=== PATIENT | male | born 1945 | race Caucasian/White ===

== ENCOUNTER → 2021-02-14 | Outpatient (CLI) | payer BC ==
[2021-02-14 13:22] LABS: BASO # 0.1 x10^3/uL (0.0-0.2); BASO % 1 % (0-3); EOS # 0.9 x10^3/uL (0.0-0.7); EOS % 8 % (0-3); HEMATOCRIT 36.5 % (39.0-53.0); HEMOGLOBIN 11.9 g/dL (13.0-17.5); LYMPH # 1.9 x10^3/uL (1.0-4.8); LYMPH % 18 % (24-48); MEAN CORPUSCULAR HEMOGLOBIN 27 pg (25-35); MEAN CORPUSCULAR HGB CONC 33 g/dL (31-37); MEAN CORPUSCULAR VOLUME 81 fL (79-100); MONO # 0.5 x10^3/uL (0.0-1.1); MONO % 4 % (0-9); NEUT # 7.2 x10^3/uL (1.8-7.7); NEUT % 68 % (31-73); PLATELET COUNT 415 x10^3/uL (140-400); RED CELL DISTRIBUTION WIDTH 18.3 % (11.5-14.5); WHITE BLOOD COUNT 10.6 x10^3/uL (4.0-11.0)
[2021-02-14 13:44] LABS: CALCIUM 9.1 mg/dL (8.5-10.1); CREATININE 1.7 mg/dL (0.7-1.3); GFR 39.3; POTASSIUM 4.4 mmol/L (3.5-5.1)
[2021-02-14 13:50] LABS: ALBUMIN 2.7 g/dL (3.4-5.0); ALBUMIN/GLOBULIN RATIO 0.6 (1.0-1.7); TOTAL BILIRUBIN 0.5 mg/dL (0.2-1.0); TOTAL PROTEIN 7.1 g/dL (6.4-8.2)
[2021-02-14 17:43] LABS: BILIRUBIN,URINE NEGATIVE (NEG); CLARITY,URINE CLEAR; COLOR,URINE YELLOW; NITRITE,URINE NEGATIVE (NEG); PH,URINE 5.5 (<5.0-8.0); PROTEIN,URINE NEGATIVE (NEG-TRACE)
[2021-02-14 17:52] LABS: BACTERIA,URINE 0 /HPF (0-FEW); RBC,URINE 0 /HPF (0-2); WBC,URINE 0 /HPF (0-4)
== END ==
LOC: ONCLAB 12:58
PROVIDERS: ATTEND Physician Assistant
DX: C78.7 Secondary malignant neoplasm of liver and intrahepatic bile duct (principal); C18.7 Malignant neoplasm of sigmoid colon
CPT/HCPCS: 36415; 80053; 81001; 83615; 85025

== ENCOUNTER → 2021-03-14 | Outpatient (CLI) | payer BC ==
[~2021-03-14] MED LIST: ACET325T9 PO; B VITAMIN; BUPR150T8 PO; CALC300T5 PO; CETI10TA74 PO; CRESTOR5 MG PO; FAMO40TA57 PO; MAG-115 PO; MECO10005 PO; MIRT7.5T8 PO; NYST100054 PO; RIVA1PAT23 TP; magic mouthwash; mvi
[2021-03-14 11:32] LABS: BASO % 0 % (0-3); EOS % 2 % (0-3); HEMOGLOBIN 12.8 g/dL (13.0-17.5); LYMPH # 1.1 x10^3/uL (1.0-4.8); LYMPH % 33 % (24-48); MEAN CORPUSCULAR HEMOGLOBIN 27 pg (25-35); MEAN CORPUSCULAR HGB CONC 33 g/dL (31-37); MEAN CORPUSCULAR VOLUME 83 fL (79-100); MONO # 0.1 x10^3/uL (0.0-1.1); MONO % 4 % (0-9); NEUT % 62 % (31-73); PLATELET COUNT 294 x10^3/uL (140-400); RED BLOOD COUNT 4.68 x10^6/uL (4.30-5.70); RED CELL DISTRIBUTION WIDTH 20.6 % (11.5-14.5); WHITE BLOOD COUNT 3.3 x10^3/uL (4.0-11.0)
[2021-03-14 11:38] LABS: CALCIUM 8.7 mg/dL (8.5-10.1); CREATININE 3.4 mg/dL (0.7-1.3); GFR 17.7; POTASSIUM 3.2 mmol/L (3.5-5.1)
[2021-03-14 11:44] LABS: ALBUMIN 2.1 g/dL (3.4-5.0); ALBUMIN/GLOBULIN RATIO 0.6 (1.0-1.7); TOTAL BILIRUBIN 0.8 mg/dL (0.2-1.0); TOTAL PROTEIN 5.9 g/dL (6.4-8.2)
[2021-03-14 12:28] LABS: % BANDS 27 % (0-9); % EOS 1 % (0-5); % LYMPHS 35 % (24-48); % MONOS 11 % (0-10); % SEGS 26 % (35-66); ANISOCYTOSIS PRESENT; PLT ESTIMATE ADEQUATE (ADEQUATE)
== END ==
LOC: ONCLAB 11:07
PROVIDERS: ATTEND Physician Assistant
DX: C18.7 Malignant neoplasm of sigmoid colon (principal)
CPT/HCPCS: 36415; 80053; 84550; 85007; 85025

== ENCOUNTER 2021-03-15 10:22 | Inpatient (IN) | payer BC ==
[~2021-03-15] VITALS: Ht 172.7 cm; Wt 52.6 kg
--- NOTE | 2021-03-15 10:52 | PHYS DOC ---
Past Medical History Past Medical History Metastatic colon cancer, Alzheimer's, chemotherapy status Past Surgical History Port placement Smoking Status: Unknown if ever smoked Alcohol Use: None Drug Use: None General Adult EDM: Chief Complaint: SHORTNESS OF BREATH Problems: (1) Shortness of breath HPI: HPI: 75-year-old male with a history of metastatic colon cancer, Alzheimer's presents to the emergency department with shortness of breath for the past several days. He was seen by his oncologist yesterday and was found to have an acute kidney injury, was given fluids yesterday felt more short of breath. The patient was seen by his oncologist before coming to the emergency department where there was concern for possible pulmonary embolism given his risk factors and presentation today. His last round of chemotherapy was approximately 10 days ago and he has had a total of 3 rounds of chemotherapy. He is complained of diarrhea since his chemotherapy. He has baseline Alzheimer's dementia and thus is unable to recall many details of his history. He was in contact with somebody with [employer] recently. Review of Systems: Review of Systems: Further review of systems is difficult secondary to patient's Alzheimer's dementia. Heart Score: C/O Chest Pain: No Family History: Family History: Noncontributory Current Medications: Current Medications Sodium Chloride 1,000 ml @ 1,000 mls/hr 1X ONCE IV Last administered on 03/15/21at 11:57; Start 03/15/21 at 11:00; Stop 03/15/21 at 11:59; Status DC Piperacillin Sod/ Tazobactam Sod (Zosyn Per Pharmacy) 1 each PRN DAILY PRN MC SEE COMMENTS; Start 03/15/21 at 11:15; Status UNV Vancomycin HCl (Vanco Per Pharmacy) 1 each PRN DAILY PRN MC SEE COMMENTS; Start 03/15/21 at 11:15; Status UNV Piperacillin Sod/ Tazobactam Sod 3.375 gm/Sodium Chloride 50 ml @ 100 mls/hr 1X ONCE IV Last administered on 03/15/21at 11:58; Start 03/15/21 at 11:30; Stop 03/15/21 at 11:59; Status DC Allergies: Allergies: Allergies Coded Allergies Type Severity Reaction Last Updated Verified No Known Drug Allergies 03/15/21 No Physical Exam: PE: Constitutional: Well developed, well nourished, no acute distress, non-toxic appearance. [] HENT: Normocephalic, atraumatic, bilateral external ears normal, oropharynx moist, no oral exudates, nose normal. [] Eyes: PERRLA, EOMI, conjunctiva normal, no discharge. [] Neck: Normal range of motion, no tenderness, supple, no stridor. [] Cardiovascular:Heart rate regular rhythm, no murmur [] Lungs & Thorax: Bilateral breath sounds clear to auscultation [] Abdomen: Bowel sounds normal, soft, no tenderness, no masses, no pulsatile masses. [] Skin: Warm, dry, no erythema, no rash. [] Back: No tenderness, no CVA tenderness. [] Extremities: No tenderness, no cyanosis, no clubbing, ROM intact, no edema. [] Neurologic: Alert and oriented X 3, normal motor function, normal sensory function, no focal deficits noted. [] Psychologic: Affect normal, judgement normal, mood normal. [] Current Patient Data: Labs: Laboratory Tests Test 03/15/21 11:25 03/15/21 11:26 03/15/21 11:50 White Blood Count 3.6 x10^3/uL (4.0-11.0) Red Blood Count 5.12 x10^6/uL (4.30-5.70) Hemoglobin 14.2 g/dL (13.0-17.5) Hematocrit 42.8 % (39.0-53.0) Mean Corpuscular Volume 84 fL (79-100) Mean Corpuscular Hemoglobin 28 pg (25-35) Mean Corpuscular Hemoglobin Concent 33 g/dL (31-37) Red Cell Distribution Width 19.8 % (11.5-14.5) Platelet Count 329 x10^3/uL (140-400) Neutrophils (%) (Auto) 73 % (31-73) Lymphocytes (%) (Auto) 23 % (24-48) Monocytes (%) (Auto) 3 % (0-9) Eosinophils (%) (Auto) 1 % (0-3) Basophils (%) (Auto) 0 % (0-3) Neutrophils # (Auto) 2.6 x10^3/uL (1.8-7.7) Lymphocytes # (Auto) 0.8 x10^3/uL (1.0-4.8) Monocytes # (Auto) 0.1 x10^3/uL (0.0-1.1) Eosinophils # (Auto) 0.0 x10^3/uL (0.0-0.7) Basophils # (Auto) 0.0 x10^3/uL (0.0-0.2) D-Dimer (Arleen) 2.23 ug/mlFEU (0.00-0.50) Sodium Level 143 mmol/L (136-145) Potassium Level 4.0 mmol/L (3.5-5.1) Chloride Level 106 mmol/L (98-107) Carbon Dioxide Level 14 mmol/L (21-32) Anion Gap 23 (6-14) Blood Urea Nitrogen 93 mg/dL (8-26) Creatinine 3.7 mg/dL (0.7-1.3) Estimated GFR (Cockcroft-Gault) 16.0 Glucose Level 107 mg/dL (70-99) Lactic Acid Level 5.6 mmol/L (0.4-2.0) Calcium Level 8.8 mg/dL (8.5-10.1) Total Bilirubin 0.6 mg/dL (0.2-1.0) Direct Bilirubin 0.3 mg/dL (0.0-0.2) Aspartate Amino Transf (AST/SGOT) 33 U/L (15-37) Alanine Aminotransferase (ALT/SGPT) 17 U/L (16-63) Alkaline Phosphatase 183 U/L (46-116) Total Protein 5.8 g/dL (6.4-8.2) Albumin 2.3 g/dL (3.4-5.0) SARS-CoV-2 Antigen (Rapid) Negative (NEGATIVE) MX-Ovi-M-Type Natriuretic Peptide 9637 pg/mL (0-449) Vital Signs: Vital Signs Date Time Temp Pulse Resp B/P (MAP) Pulse Ox O2 Delivery O2 Flow Rate FiO2 03/15/21 10:22 97.4 86 26 88/62 99 Room Air 97.4 EKG: EKG: Normal sinus rhythm rate of 87, no ST-T wave changes, no ectopic beats, normal axis, normal KS, QRS, and QTc intervals. Impression: Normal EKG. interpreted by me, Bria Velez D.O. Radiology/Procedures: Radiology/Procedures: PROCEDURE: CHEST AP ONLY Single AP view of the chest. Comparison: None. Indication: Shortness of breath Findings: Left subclavian Port-A-Cath is seen with the tip in the mid SVC. The aorta is calcified. The heart is not enlarged. There is no pneumothorax or effusion. No air space or interstitial disease. Impression: 1. No acute cardiopulmonary process. Electronically signed by: Reinaldo Briones MD (03/15/2021 11:11 AM) PROCEDURE: VENOUS LOWER EXT BILATERAL US BILATERAL LOWEREXTREMITY VENOUS DOPPLER History: Reason: Leg color changes / Spl. Instructions: / History: Swelling Comparison: None. Technique: Multiple longitudinal and transverse high resolution real-time images of the venous system of bilateral lower extremity were obtained with color and Doppler sampling. Findings: The common femoral, superficial femoral, popliteal and proximal calf veins are all patent and demonstrate normal flow and compressibility. Normal respiratory phasicity and augmentation is present. Impression: 1. No evidence of deep vein thrombosis. Electronically signed by: Jean-Paul Juarez DO (03/15/2021 12:48 PM) [] Course & Med Decision Making: Course & Med Decision Making Cachectic appearing, chronically ill male presents with shortness of breath as above. Per family, the patient is a DNR per his advanced directives. The patient's labs are suggestive of an acute kidney injury. His D-dimer is elevated and there is moderate suspicion for pulmonary embolism per the oncologist who checked out to me. A CT angiogram was unable to be performed by the radiology department today due to his lab findings, thus a D-dimer which was positive and DVT ultrasounds were performed which were negative. The patient will be admitted to the hospital under Dr. Gill. His vital signs were improved after fluids. Dehydration is likely the cause of his acute kidney injury and lactic acidosis today secondary to his diarrhea from chemo. Antibiotics were ordered to cover for sepsis due to his hypotension and ill ap pearance Departure Departure Impression: Primary Impression: Lactic acidosis Additional Impressions: Acute renal injury due to hypovolemia Cachexia Disposition: ADMITTED INPATIENT Admitting Physician: JAYCEE (Jairo) Condition: IMPROVED Referrals: UNKNOWN PCP NAME (PCP) BRIA VELEZ DO Mar 15, 2021 10:52
[2021-03-15] MEDS ORDERED: IV NORMAL SALINE 1000ML BAG 1,000 ML IV ONE ×3 (11:00→17:00)
--- NOTE | 2021-03-15 11:14 | RAD ---
Single AP view of the chest. Comparison: None. Indication: Shortness of breath Findings: Left subclavian Port-A-Cath is seen with the tip in the mid SVC. The aorta is calcified. The heart is not enlarged. There is no pneumothorax or effusion. No air space or interstitial disease. Impression: 1. No acute cardiopulmonary process. Electronically signed by: Reinaldo Briones MD (03/15/2021 11:11 AM) [id number]
[2021-03-15] MEDS ORDERED: PIP/TAZO PER PHARMACY MC PRN (11:15)
[2021-03-15] MEDS ORDERED: VANCOMYCIN PER PHARMACY MC PRN (11:15)
[2021-03-15] MEDS ORDERED: PIPERACILLIN/TAZOBACTAM 3.375 GM in IV NORMAL SALINE 50ML 50 ML IV ONE (11:30)
[2021-03-15 11:54] LABS: BASO % 0 % (0-3); EOS % 1 % (0-3); HEMATOCRIT 42.8 % (39.0-53.0); HEMOGLOBIN 14.2 g/dL (13.0-17.5); LYMPH # 0.8 x10^3/uL (1.0-4.8); LYMPH % 23 % (24-48); MEAN CORPUSCULAR HEMOGLOBIN 28 pg (25-35); MEAN CORPUSCULAR HGB CONC 33 g/dL (31-37); MEAN CORPUSCULAR VOLUME 84 fL (79-100); MONO # 0.1 x10^3/uL (0.0-1.1); MONO % 3 % (0-9); NEUT # 2.6 x10^3/uL (1.8-7.7); NEUT % 73 % (31-73); PLATELET COUNT 329 x10^3/uL (140-400); RED BLOOD COUNT 5.12 x10^6/uL (4.30-5.70); RED CELL DISTRIBUTION WIDTH 19.8 % (11.5-14.5); WHITE BLOOD COUNT 3.6 x10^3/uL (4.0-11.0)
[2021-03-15 12:29] LABS: CALCIUM 8.8 mg/dL (8.5-10.1); CREATININE 3.7 mg/dL (0.7-1.3)
[2021-03-15 12:40] LABS: ALBUMIN 2.3 g/dL (3.4-5.0); DIRECT BILIRUBIN 0.3 mg/dL (0.0-0.2); TOTAL BILIRUBIN 0.6 mg/dL (0.2-1.0); TOTAL PROTEIN 5.8 g/dL (6.4-8.2)
--- NOTE | 2021-03-15 12:51 | RAD ---
US BILATERAL LOWEREXTREMITY VENOUS DOPPLER History: Reason: Leg color changes / Spl. Instructions: / History: Swelling Comparison: None. Technique: Multiple longitudinal and transverse high resolution real-time images of the venous system of bilateral lower extremity were obtained with color and Doppler sampling. Findings: The common femoral, superficial femoral, popliteal and proximal calf veins are all patent and demonst rate normal flow and compressibility. Normal respiratory phasicity and augmentation is present. Impression: 1. No evidence of deep vein thrombosis. Electronically signed by: Jean-Paul Juarez DO (03/15/2021 12:48 PM) [id number]
--- NOTE | 2021-03-15 13:07 | PDOC1 ---
History and Physical Date of Admission Date of Admission DATE: 03/15/21 TIME: 13:07 Identification/Chief Complaint Chief Complaint fatigue, weight loss, dehydration History of Present Illness History of Present Illness 75-year-old male with a history of metastatic colon cancer, Alzheimer's presented to the emergency department with shortness of breath for the past several days.seen by his oncologist yesterday and was found to have an acute kidney injury, last round of chemotherapy was approximately 10 days ago and he has had a total of 3 rounds of chemotherapy. has complained of diarrhea since his chemotherapy. hx compromised due to baseline Alzheimer's dementia hx Stage 4 metastatic colon cancer Left subclavian Port-A-Cath Acute renal injury due to hypovolemia / Cachexia / Severe protein-caloric malnutrition cr 3.7 PLAN DVT prophylaxis /Consult oncology //iv fluid support //emperic iv zosyn, zyvox // ID CONSULT consult nephrology Past Medical History Past Medical History Past Medical History Past Medical History Metastatic colon cancer, Alzheimer's, chemotherapy status Past Surgical History Port placement Smoking Status: Unknown if ever smoked Alcohol Use: None Drug Use: None fhx dementia CENTRAL NERVOUS SYSTEM: Dementia Musculoskeletal: Weakness Family History Family History: Hypertension Social History Smoke: No ALCOHOL: none Drugs: None Current Medications Current Medications Current Medications Sodium Chloride 1,000 ml @ 1,000 mls/hr 1X ONCE IV Last administered on 03/15/21at 11:57; Start 03/15/21 at 11:00; Stop 03/15/21 at 11:59; Status DC Piperacillin Sod/ Tazobactam Sod (Zosyn Per Pharmacy) 1 each PRN DAILY PRN MC SEE COMMENTS; Start 03/15/21 at 11:15; Status UNV Vancomycin HCl (Vanco Per Pharmacy) 1 each PRN DAILY PRN MC SEE COMMENTS; Start 03/15/21 at 11:15; Status UNV Piperacillin Sod/ Tazobactam Sod 3.375 gm/Sodium Chloride 50 ml @ 100 mls/hr 1X ONCE IV Last administered on 03/15/21at 11:58; Start 03/15/21 at 11:30; Stop 03/15/21 at 11:59; Status DC Allergies Allergies: Coded Allergies: No Known Drug Allergies (Unverified , 03/15/21) ROS General: YES: Fatigue, Malaise, Appetite PSYCHOLOGICAL ROS: YES: Concentration difficultie; No: Anxiety, Behavioral Disorder, Decreased libido, Depression, Disorientation, Hallucinations, Hostility, Irritablity, Memory difficulties, Mood Swings, Obsessive thoughts, Physical abuse, Sexual abuse, Sleep disturbances, Suicidal ideation, Other Eyes: Yes Decreased vision; No Blurry vision, No Double vision, No Dry eyes, No Excessive tearing, No Eye Pain, No Itchy Eyes, No Loss of vision, No Photophobia, No Scotomata, No Uses contacts, No Uses glasses, No Other HEENT: No: Heacaches, Visual Changes, Hearing change, Nasal congestion, Nasal discharge, Oral lesions, Sinus pain, Sore Throat, Epistaxis, Sneezing, Snoring, Tinnitus, Vertigo, Vocal changes, Other ALLERGY AND IMMUNOLOGY: No: Hives, Insect Bite Sensitivity, Itchy/Watery Eyes, Nasal Congestion, Post Nasal Drip, Seasonal Allergies, Other Hematological and Lymphatic: No: Bleeding Problems, Blood Clots, Blood T ransfusions, Brusing, Night Sweats, Pallor, Swollen Lymph Nodes, Other ENDOCRINE: No: Breast Changes, Galactorrhea, Hair Pattern Changes, Hot Flashes, Malaise/lethargy, Mood Swings, Palpitations, Polydipsia/polyuria, Skin Changes, Temperature Intolerance, Unexpected Weight Changes, Other Breast: No New/Changing Breast Lumps, No Nipple changes, No Nipple discharge, No Other Respiratory: YES: Shortness of breath, SOB with excertion; No: Cough, Hemoptysis, Orthopnea, Pleuritic Pain, Sputum Changes, Stridor, Tachypnea, Wheezing, Other Cardiovascular: No Chest Pain, No Palpitations, No Orthopnea, No Paroxysmal Noc. Dyspnea, No Edema, No Lt Headedness, No Other Gastrointestinal: Yes Diarrhea; No Nausea, No Vomiting, No Abdominal Pain, No Constipation, No Melena, No Hematochezia, No Other Genitourinary: No Dysuria, No Frequency, No Incontinence, No Hematuria, No Retention, No Discharge, No Urgency, No Pain, No Flank Pain, No Other, No , No , No , No , No , No , No Musculoskeletal: Yes Joint Stiffness Neurological: Yes Confusion; No Behavorial Changes, No Bowel/Bladder ControlChng, No Dizziness, No Gait Disturbance, No Headaches, No Impaired Coord/balance, No Memory Loss, No Numbness/Tingling, No Seizures, No Speech Problems, No Tremors, No Visual Changes, No Weakness, No Other Skin: Yes Dry Skin; No Eczema, No Hair Changes, No Lumps, No Mole Changes, No Mottling, No Nail Changes, No Pruritus, No Rash, No Skin Lesion Changes, No Other, No Acne Physical Exam Physical Exam Constitutional: cachexia no acute distress, non-toxic appearance. [] HENT: Normocephalic, atraumatic, bilateral external ears normal, oropharynx moist, no oral exudates, nose normal. [] Eyes: PERRLA, EOMI, conjunctiva normal, no discharge. [] Neck: Normal range of motion, no tenderness, supple, no stridor. [] Cardiovascular:Heart rate regular rhythm, no murmur [] Lungs & Thorax: Bilateral breath sounds clear to auscultation [] Abdomen: Bowel sounds normal, soft, no tenderness, no masses, no pulsatile masses. [] Skin: Warm, dry, no erythema, no rash. [] Back: No tenderness, no CVA tenderness. [] Extremities: No tenderness, no cyanosis, no clubbing, ROM intact, no edema. [] Left subclavian Port-A-Cath General: Cooperative HEENT: EOMI Lungs: Normal air movement Heart: no thrills Abdomen: Normal bowel sounds Rectal Exam: not examined PELVIC: Examination not indicated Extremities: No clubbing, No cyanosis Neuro: Cranial nerves 3-12 NL Vitals Vitals Vital Signs Date Time Temp Pulse Resp B/P (MAP) Pulse Ox O2 Delivery O2 Flow Rate FiO2 03/15/21 10:22 97.4 86 26 88/62 99 Room Air 97.4 Labs Labs Laboratory Tests Test 03/15/21 11:25 03/15/21 11:26 03/15/21 11:50 White Blood Count 3.6 x10^3/uL (4.0-11.0) Red Blood Count 5.12 x10^6/uL (4.30-5.70) Hemoglobin 14.2 g/dL (13.0-17.5) Hematocrit 42.8 % (39.0-53.0) Mean Corpuscular Volume 84 fL (79-100) Mean Corpuscular Hemoglobin 28 pg (25-35) Mean Corpuscular Hemoglobin Concent 33 g/dL (31-37) Red Cell Distribution Width 19.8 % (11.5-14.5) Platelet Count 329 x10^3/uL (140-400) Neutrophils (%) (Auto) 73 % (31-73) Lymphocytes (%) (Auto) 23 % (24-48) Monocytes (%) (Auto) 3 % (0-9) Eosinophils (%) (Auto) 1 % (0-3) Basophils (%) (Auto) 0 % (0-3) Neutrophils # (Auto) 2.6 x10^3/uL (1.8-7.7) Lymphocytes # (Auto) 0.8 x10^3/uL (1.0-4.8) Monocytes # (Auto) 0.1 x10^3/uL (0.0-1.1) Eosinophils # (Auto) 0.0 x10^3/uL (0.0-0.7) Basophils # (Auto) 0.0 x10^3/uL (0.0-0.2) D-Dimer (Arleen) 2.23 ug/mlFEU (0.00-0.50) Sodium Level 143 mmol/L (136-145) Potassium Level 4.0 mmol/L (3.5-5.1) Chloride Level 106 mmol/L (98-107) Carbon Dioxide Level 14 mmol/L (21-32) Anion Gap 23 (6-14) Blood Urea Nitrogen 93 mg/dL (8-26) Creatinine 3.7 mg/dL (0.7-1.3) Estimated GFR (Cockcroft-Gault) 16.0 Glucose Level 107 mg/dL (70-99) Calcium Level 8.8 mg/dL (8.5-10.1) Total Bilirubin 0.6 mg/dL (0.2-1.0) Direct Bilirubin 0.3 mg/dL (0.0-0.2) Aspartate Amino Transf (AST/SGOT) 33 U/L (15-37) Alanine Aminotransferase (ALT/SGPT) 17 U/L (16-63) Alkaline Phosphatase 183 U/L (46-116) Total Protein 5.8 g/dL (6.4-8.2) Albumin 2.3 g/dL (3.4-5.0) SARS-CoV-2 Antigen (Rapid) Negative (NEGATIVE) AB-Aoi-Z-Type Natriuretic Peptide 9637 pg/mL (0-449) Laboratory Tests Test 03/15/21 11:25 03/15/21 11:26 03/15/21 11:50 White Blood Count 3.6 x10^3/uL (4.0-11.0) Red Blood Count 5.12 x10^6/uL (4.30-5.70) Hemoglobin 14.2 g/dL (13.0-17.5) Hematocrit 42.8 % (39.0-53.0) Mean Corpuscular Volume 84 fL (79-100) Mean Corpuscular Hemoglobin 28 pg (25-35) Mean Corpuscular Hemoglobin Concent 33 g/dL (31-37) Red Cell Distribution Width 19.8 % (11.5-14.5) Platelet Count 329 x10^3/uL (140-400) Neutrophils (%) (Auto) 73 % (31-73) Lymphocytes (%) (Auto) 23 % (24-48) Monocytes (%) (Auto) 3 % (0-9) Eosinophils (%) (Auto) 1 % (0-3) Basophils (%) (Auto) 0 % (0-3) Neutrophils # (Auto) 2.6 x10^3/uL (1.8-7.7) Lymphocytes # (Auto) 0.8 x10^3/uL (1.0-4.8) Monocytes # (Auto) 0.1 x10^3/uL (0.0-1.1) Eosinophils # (Auto) 0.0 x10^3/uL (0.0-0.7) Basophils # (Auto) 0.0 x10^3/uL (0.0-0.2) D-Dimer (Arleen) 2.23 ug/mlFEU (0.00-0.50) Sodium Level 143 mmol/L (136-145) Potassium Level 4.0 mmol/L (3.5-5.1) Chloride Level 106 mmol/L (98-107) Carbon Dioxide Level 14 mmol/L (21-32) Anion Gap 23 (6-14) Blood Urea Nitrogen 93 mg/dL (8-26) Creatinine 3.7 mg/dL (0.7-1.3) Estimated GFR (Cockcroft-Gault) 16.0 Glucose Level 107 mg/dL (70-99) Calcium Level 8.8 mg/dL (8.5-10.1) Total Bilirubin 0.6 mg/dL (0.2-1.0) Direct Bilirubin 0.3 mg/dL (0.0-0.2) Aspartate Amino Transf (AST/SGOT) 33 U/L (15-37) Alanine Aminotransferase (ALT/SGPT) 17 U/L (16-63) Alkaline Phosphatase 183 U/L (46-116) Total Protein 5.8 g/dL (6.4-8.2) Albumin 2.3 g/dL (3.4-5.0) SARS-CoV-2 Antigen (Rapid) Negative (NEGATIVE) RN-Euo-Z-Type Natriuretic Peptide 9637 pg/mL (0-449) Images Images think and talk about your own wishes for healthcare in case youre ever not able to tell your loved ones or healthcare team what your wishes are. If you became really sick tomorrow, would your loved ones or healthcare team know what your wishes were? Here are some examples of different sets of goals and health care directives for your conversations: My wish is to use all medical therapies including resuscitation (such as CPR) and artificial life-sustaining treatments (such as machines and medicine) in an intensive care unit, to keep me alive if at all possible. My wish is to live as long as possible, but I dont want attempts to bring me back to life if my heart and breathing stop. I would like full medical care but without using resuscitation or artificial life- sustaining intensive treatments, if these are unlikely to make me live longer or restore me to a certain quality of life. I will accept treatments that try to fix medical problems, but if Im not getting better or going to have a certain quality of life, I would want to switch to focusing only on my comfort and letting my happen naturally. My wish is for healthcare to focus on my comfort and lessen suffering. I would like medical care that focuses only on my quality of life and that allows me to naturally. Consider: What does a good quality of life mean for me? For many people, it is the ability to live independently and tell their own story. I may define it differently. Under what circumstances would I not want to be kept alive by medical treatments, resuscitation, or intensive care? What kind of changes to my health or life might make me change my mind? If I clearly am facing the last chapter of my life, how do I want the story to end? Who do I want to speak for me if I cant speak for myself? Do they understand my preferences? Are they willing to assume the role of my Durable Power of Milling Machine Operator Gear? Can I change my Goals of Care Designation? Yes, your Goals of Care Designation can be changed at any time. It should be reviewed if: your health condition changes your circumstances change (such as new understanding) you are transferred or admitted to another healthcare setting dpoa review, to pt portal 17 min and question review PATIENT: KAILYN DOUGLAS ACCOUNT: [id number] : 1945 LOCATION: ER AGE: 75 SEX: M EXAM STATUS: REG ER ORD. PHYSICIAN: BRIA ELLIOTT DO REASON: shortness of breath PROCEDURE: CHEST AP ONLY Single AP view of the chest. Comparison: None. Indication: Shortness of breath Findings: Left subclavian Port-A-Cath is seen with the tip in the mid SVC. The aorta is calcified. The heart is not enlarged. There is no pneumothorax or effusion. No air space or interstitial disease. Impression: 1. No acute cardiopulmonary process. Electronically signed by: Reinaldo Briones MD (03/15/2021 11:11 AM) [id number] DICTATED and SIGNED BY: REINALDO BRIONES MD DATE: 03/15/21 [id number] 0Signed PATIENT: KAILYN DOUGLAS ACCOUNT: [id number] : 1945 LOCATION: ER AGE: 75 SEX: M EXAM STATUS: REG ER ORD. PHYSICIAN: BRIA ELLIOTT DO REASON: Leg color changes PROCEDURE: VENOUS LOWER EXT BILATERAL US BILATERAL LOWEREXTREMITY VENOUS DOPPLER History: Reason: Leg color changes / Spl. Instructions: / History: Swelling Comparison: None. Technique: Multiple longitudinal and transverse high resolution real-time images of the venous system of bilateral lower extremity were obtained with color and Doppler sampling. Findings: The common femoral, superficial femoral, popliteal and proximal calf veins are all patent and demonstrate normal flow and compressibility. Normal respiratory phasicity and augmentation is present. Impression: 1. No evidence of deep vein thrombosis. Electronically signed by: Jean-Paul Juarez DO (03/15/2021 12:48 PM) [id number] DICTATED and SIGNED BY: JEAN-PAUL JUAREZ DO DATE: 03/15/21 [id number] PATIENT: KAILYN DOUGLAS ACCOUNT: [id number] : 1945 LOCATION: ER AGE: 75 SEX: M EXAM STATUS: REG ER ORD. PHYSICIAN: BRIA ELLIOTT DO REASON: shortness of breath PROCEDURE: CHEST AP ONLY Single AP view of the chest. Comparison: None. Indication: Shortness of breath Findings: Left subclavian Port-A-Cath is seen with the tip in the mid SVC. The aorta is calcified. The heart is not enlarged. There is no pneumothorax or effusion. No air space or interstitial disease. Impression: 1. No acute cardiopulmonary process. Electronically signed by: Reinaldo Briones MD (03/15/2021 11:11 AM) [id number] DICTATED and SIGNED BY: REINALDO BRIONES MD DATE: 03/15/21 [id number] VTE Prophylaxis Ordered VTE Prophylaxis Devices: No VTE Pharmacological Prophylaxi: Yes Assessment/Plan Assessment/Plan Impression: Lactic acidosis Stage 4 metastatic colon cancer Left subclavian Port-A-Cath Acute renal injury due to hypovolemia Cachexia Severe protein-caloric malnutrition SEPSIS ADMITTED iv fluid support DNR CONSULT NEPHROLOGY DVT prophylaxis Consult oncology iv fluid support emperic iv zosyn, zyvox ID CONSULT Justifications for Admission Other Justification MARCIA RUFFIN MD Mar 15, 2021 13:07
[2021-03-15] MEDS ORDERED: ONDANSETRON PF 4 MG/2 ML VIAL. IVP PRN (13:15)
[2021-03-15] MEDS ORDERED: ACETAMINOPHEN 325 MG TABLET. PO PRN ×2 (13:15→16:30)
[2021-03-15 13:20] LABS: % BANDS 55 % (0-9); % EOS 1 % (0-5); % LYMPHS 23 % (24-48); % METAS 10 % (0-0); % MONOS 5 % (0-10); % MYELOS 1 % (0-0); % SEGS 5 % (35-66); ANISOCYTOSIS MOD; NUCLEATED RBC 14; PLT ESTIMATE ADEQUATE (ADEQUATE)
[2021-03-15 13:21] LABS: POLYCHROMASIA OCCASIONAL
[2021-03-15] MEDS ORDERED: VANCOMYCIN 1.25 GM in IV NORMAL SALINE 250ML 250 ML IV ONE (14:00)
[2021-03-15] MEDS: IV NORMAL SALINE 1000ML BAG 1,000 ML IV SCH ×2 (15:30→23:23)
[2021-03-15] MEDS ORDERED: guaiFENesin ORAL 200 MG/10 ML LIQUID. PO PRN (16:30)
[2021-03-15] MEDS ORDERED: 0.9 % SODIUM CHLORIDE 10 ML DISP.SYRIN. IV PRN (16:30)
[2021-03-15] MEDS ORDERED: ONDANSETRON PF 4 MG/2 ML VIAL. IV PRN (16:30)
[2021-03-15] MEDS ORDERED: DOCUSATE SODIUM 100 MG CAPSULE. PO PRN (16:30)
[2021-03-15] MEDS ORDERED: ALBUTEROL SULFATE 2.5 MG/3 ML NEBU. NEB PRN (16:30)
[2021-03-15] MEDS ORDERED: ACETAMINOPHEN 650 MG SUPP.RECT. PR PRN (16:30)
[2021-03-15] MEDS: PIPERACILLIN/TAZOBACTAM 2.25 GM in IV NORMAL SALINE 50ML 50 ML IV SCH (17:38)
[2021-03-15 23:15] VITALS: BP 130/58
[2021-03-16] MEDS: PIPERACILLIN/TAZOBACTAM 2.25 GM in IV NORMAL SALINE 50ML 50 ML IV SCH ×5 (02:37→23:40)
[2021-03-16 03:00] VITALS: BP 122/56
[2021-03-16] MEDS: IV NORMAL SALINE 1000ML BAG 1,000 ML IV SCH (06:00)
[2021-03-16 06:16] LABS: BASO % 0 % (0-3); EOS # 0.1 x10^3/uL (0.0-0.7); EOS % 1 % (0-3); LYMPH # 0.7 x10^3/uL (1.0-4.8); LYMPH % 14 % (24-48); MEAN CORPUSCULAR HEMOGLOBIN 28 pg (25-35); MEAN CORPUSCULAR HGB CONC 32 g/dL (31-37); MEAN CORPUSCULAR VOLUME 86 fL (79-100); MONO # 0.2 x10^3/uL (0.0-1.1); MONO % 3 % (0-9); NEUT # 3.8 x10^3/uL (1.8-7.7); NEUT % 81 % (31-73); PLATELET COUNT 227 x10^3/uL (140-400); RED BLOOD COUNT 3.96 x10^6/uL (4.30-5.70); RED CELL DISTRIBUTION WIDTH 22.4 % (11.5-14.5); WHITE BLOOD COUNT 4.7 x10^3/uL (4.0-11.0)
[2021-03-16 06:37] LABS: CALCIUM 7.8 mg/dL (8.5-10.1); CREATININE 2.9 mg/dL (0.7-1.3); GFR 21.2
[2021-03-16] MEDS ORDERED: NYST100054 PO (06:37)
[2021-03-16] MEDS ORDERED: CRESTOR5 MG PO (06:37)
[2021-03-16] MEDS ORDERED: mvi (06:37)
[2021-03-16] MEDS ORDERED: MIRT7.5T8 PO (06:37)
[2021-03-16] MEDS ORDERED: BUPR150T8 PO (06:37)
[2021-03-16] MEDS ORDERED: MECO10005 PO (06:37)
[2021-03-16] MEDS ORDERED: CETI10TA74 PO (06:37)
[2021-03-16] MEDS ORDERED: FAMO40TA57 PO (06:37)
[2021-03-16] MEDS ORDERED: MAG-115 PO (06:37)
[2021-03-16] MEDS ORDERED: CALC300T5 PO (06:37)
[2021-03-16] MEDS ORDERED: RIVA1PAT23 TP (06:37)
[2021-03-16] MEDS ORDERED: magic mouthwash (06:37)
[2021-03-16] MEDS ORDERED: B VITAMIN (06:37)
[2021-03-16] MEDS ORDERED: ACET325T9 PO (06:37)
[2021-03-16 07:00] VITALS: BP 119/55
[2021-03-16 07:21] LABS: POTASSIUM 2.9 mmol/L (3.5-5.1)
--- NOTE | 2021-03-16 07:48 | PDOC ---
[employer] PROGRESS NOTE Date of Service DOS: DATE: 03/16/21 TIME: 07:47 Chief Complaint Chief Complaint A/P: Lactic acidosis Stage 4 metastatic colon cancer Left subclavian Port-A-Cath Acute renal injury due to hypovolemia Cachexia Severe protein-caloric malnutrition SEPSIS History of Present Illness History of Present Illness 75-year-old male with a history of metastatic colon cancer, Alzheimer's presented to the emergency department with shortness of breath for the past several days.seen by his oncologist yesterday and was found to have an acute kidney injury, last round of chemotherapy was approximately 10 days ago and he has had a total of 3 rounds of chemotherapy. has complained of diarrhea since his chemotherapy. hx compromised due to baseline Alzheimer's dementia hx Stage 4 metastatic colon cancer Left subclavian Port-A-Cath Acute renal injury due to hypovolemia / Cachexia / Severe protein-caloric malnutrition cr 3.7 K2.9 today. Just feeling tired this is only complaint. Afebrile. Vitals/I&O Vitals/I&O: Vital Signs Date Time Temp Pulse Resp B/P (MAP) Pulse Ox O2 Delivery O2 Flow Rate FiO2 03/16/21 03:00 96.5 81 20 122/56 (78) 97 Room Air 96.5 I & O 03/15/21 03/15/21 03/16/21 15:00 23:00 07:00 Intake Total 0 ml Balance 0 ml Physical Exam General: Cooperative Abdomen: Normal bowel sounds Extremities: No clubbing, No cyanosis Labs Labs: Laboratory Tests Test 03/15/21 11:25 03/15/21 11:26 03/15/21 11:50 03/15/21 15:20 White Blood Count 3.6 x10^3/uL (4.0-11.0) Red Blood Count 5.12 x10^6/uL (4.30-5.70) Hemoglobin 14.2 g/dL (13.0-17.5) Hematocrit 42.8 % (39.0-53.0) Mean Corpuscular Volume 84 fL (79-100) Mean Corpuscular Hemoglobin 28 pg (25-35) Mean Corpuscular Hemoglobin Concent 33 g/dL (31-37) Red Cell Distribution Width 19.8 % (11.5-14.5) Platelet Count 329 x10^3/uL (140-400) Neutrophils (%) (Auto) 73 % (31-73) Lymphocytes (%) (Auto) 23 % (24-48) Monocytes (%) (Auto) 3 % (0-9) Eosinophils (%) (Auto) 1 % (0-3) Basophils (%) (Auto) 0 % (0-3) Neutrophils # (Auto) 2.6 x10^3/uL (1.8-7.7) Lymphocytes # (Auto) 0.8 x10^3/uL (1.0-4.8) Monocytes # (Auto) 0.1 x10^3/uL (0.0-1.1) Eosinophils # (Auto) 0.0 x10^3/uL (0.0-0.7) Basophils # (Auto) 0.0 x10^3/uL (0.0-0.2) Segmented Neutrophils % 5 % (35-66) Band Neutrophils % 55 % (0-9) Lymphocytes % 23 % (24-48) Monocytes % 5 % (0-10) Eosinophils % 1 % (0-5) Metamyelocytes % 10 % (0-0) Myelocytes % 1 % (0-0) Nucleated Red Blood Cells 14 Dohle Bodies Present Platelet Estimate Adequate (ADEQUATE) Platelet Clumps, EDTA Polychromasia Occasional Anisocytosis Mod D-Dimer (Arleen) 2.23 ug/mlFEU (0.00-0.50) Sodium Level 143 mmol/L (136-145) Potassium Level 4.0 mmol/L (3.5-5.1) Chloride Level 106 mmol/L (98-107) Carbon Dioxide Level 14 mmol/L (21-32) Anion Gap 23 (6-14) Blood Urea Nitrogen 93 mg/dL (8-26) Creatinine 3.7 mg/dL (0.7-1.3) Estimated GFR (Cockcroft-Gault) 16.0 Glucose Level 107 mg/dL (70-99) Lactic Acid Level 5.6 mmol/L (0.4-2.0) 6.3 mmol/L (0.4-2.0) Calcium Level 8.8 mg/dL (8.5-10.1) Total Bilirubin 0.6 mg/dL (0.2-1.0) Direct Bilirubin 0.3 mg/dL (0.0-0.2) Aspartate Amino Transf (AST/SGOT) 33 U/L (15-37) Alanine Aminotransferase (ALT/SGPT) 17 U/L (16-63) Alkaline Phosphatase 183 U/L (46-116) Total Protein 5.8 g/dL (6.4-8.2) Albumin 2.3 g/dL (3.4-5.0) SARS-CoV-2 Antigen (Rapid) Negative (NEGATIVE) XO-Ezg-V-Type Natriuretic Peptide 9637 pg/mL (0-449) Test 03/16/21 04:58 White Blood Count 4.7 x10^3/uL (4.0-11.0) Red Blood Count 3.96 x10^6/uL (4.30-5.70) Hemoglobin 11.0 g/dL (13.0-17.5) Hematocrit 34.0 % (39.0-53.0) Mean Corpuscular Volume 86 fL (79-100) Mean Corpuscular Hemoglobin 28 pg (25-35) Mean Corpuscular Hemoglobin Concent 32 g/dL (31-37) Red Cell Distribution Width 22.4 % (11.5-14.5) Platelet Count 227 x10^3/uL (140-400) Neutrophils (%) (Auto) 81 % (31-73) Lymphocytes (%) (Auto) 14 % (24-48) Monocytes (%) (Auto) 3 % (0-9) Eosinophils (%) (Auto) 1 % (0-3) Basophils (%) (Auto) 0 % (0-3) Neutrophils # (Auto) 3.8 x10^3/uL (1.8-7.7) Lymphocytes # (Auto) 0.7 x10^3/uL (1.0-4.8) Monocytes # (Auto) 0.2 x10^3/uL (0.0-1.1) Eosinophils # (Auto) 0.1 x10^3/uL (0.0-0.7) Basophils # (Auto) 0.0 x10^3/uL (0.0-0.2) Sodium Level 146 mmol/L (136-145) Potassium Level 2.9 mmol/L (3.5-5.1) Chloride Level 115 mmol/L (98-107) Carbon Dioxide Level 13 mmol/L (21-32) Anion Gap 18 (6-14) Blood Urea Nitrogen 84 mg/dL (8-26) Creatinine 2.9 mg/dL (0.7-1.3) Estimated GFR (Cockcroft-Gault) 21.2 Glucose Level 62 mg/dL (70-99) Calcium Level 7.8 mg/dL (8.5-10.1) Assessment and Plan Assessmemt and Plan Problems Medical Problems: (1) Acute renal injury due to hypovolemia Status: Acute (2) Cachexia Status: Acute (3) Lactic acidosis Status: Acute Comment Review of Relevant I have reviewed the following items day (where applicable) has been applied. Medications: Current Medications Medications (Trade) Dose Ordered Sig/Cornelio Route PRN Reason Start Time Stop Time Status Last Admin Dose Admin Sodium Chloride 1,000 ml @ 1,000 mls/hr 1X ONCE IV 03/15/21 11:00 03/15/21 11:59 DC 03/15/21 11:57 Piperacillin Sod/ Tazobactam Sod 3.375 gm/Sodium Chloride 50 ml @ 100 mls/hr 1X ONCE IV 03/15/21 11:30 03/15/21 11:59 DC 03/15/21 11:58 Sodium Chloride 1,000 ml @ 125 mls/hr Q8H IV 03/15/21 14:00 03/16/21 13:59 03/15/21 23:23 Vancomycin HCl 1.25 gm/Sodium Chloride 250 ml @ 166.667 mls/hr 1X ONCE IV 03/15/21 14:00 03/15/21 15:29 DC 03/15/21 14:04 Sodium Chloride 1,000 ml @ 1,000 mls/hr 1X ONCE IV 03/15/21 13:30 03/15/21 14:29 DC 03/15/21 14:05 Piperacillin Sod/ Tazobactam Sod 2.25 gm/Sodium Chloride 50 ml @ 100 mls/hr Q6HRS IV 03/15/21 18:00 03/16/21 06:00 Linezolid/Dextrose 300 ml @ 300 mls/hr Q12HR IV 03/15/21 21:00 03/16/21 00:37 Sodium Chloride 1,000 ml @ 1,000 mls/hr 1X ONCE IV 03/15/21 17:00 03/15/21 17:59 DC 03/15/21 17:00 Justifications for Admission General Conditions Elevated Lactate?: Yes Justification for admission: Patient has tachycardia (> 100 beats per minute) or hypotension (SBP < 90 mm Hg) leading to inadequate systemic perfusion as indicated by lactate of greater or equal to 2.5 mmol/L. Other Justification ANNE MARIE BAH MD Mar 16, 2021 07:48
[2021-03-16] MEDS ORDERED: POTASSIUM BICARB 20 MEQ EFFERVESCENT TABLET. PO ONE (08:30)
--- NOTE | 2021-03-16 10:51 | PDOC2 ---
CONSULT Date of Consult Date of Consult DATE: 03/16/21 TIME: 10:42 Reason for Consult Reason for Consult: GLENDA Referring Physician Referring Physician: AUGUSTIN Identification/Chief Complaint Chief Complaint CONFUSION, GLENDA Source Source: Chart review History of Present Illness Reason for Visit: THIS IS A 75 YR OLD WITH STAGE 4 MET COLON CA. APPARENTLY HAD SOME SOB LAST FEW DAYS. HAS BEEN GETTING CHEMOTHERAPY LAST OF WHICH WAS 10 DAYS AGO. HE HAS HAD 3 ROUNDS. HE CANNOT GIVE ANY HX HE IS CONFUSED AND HAS ALZHEIMERS. HE HAS HAD POOR PO INTAKE AND DIARRHEA. LABS INDICATED GLENDA WITH HYPOKALEMIA, HYPERNATREMIA AND AN AG MET ACIDOSIS WITH HYPERCHLOREMIA. NO KNOW CKD AND NO KNOWN OTHER H X. UNCERTAIN WHICH CHEMO DRUGS HAVE BEEN UTILIZED. ALSO HYPOTENSIVE ON ADMIT. MILD LEUCOPENIA ALSO NOTED Past Medical History Cardiovascular: HTN CENTRAL NERVOUS SYSTEM: Dementia Heme/Onc: Cancer, Other Psych: Depression Musculoskeletal: Weakness Past Surgical History Past Surgical History PORT A CATH Family History Family History: Hypertension Social History No ALCOHOL: none Drugs: None Lives: with Family Current Problem List Problem List Problems Medical Problems: (1) Acute renal injury due to hypovolemia Status: Acute (2) Cachexia Status: Acute (3) Lactic acidosis Status: Acute Current Medications Current Medications Current Medications Sodium Chloride 1,000 ml @ 1,000 mls/hr 1X ONCE IV Last administered on 03/15/21at 11:57; Start 03/15/21 at 11:00; Stop 03/15/21 at 11:59; Status DC Piperacillin Sod/ Tazobactam Sod (Zosyn Per Pharmacy) 1 each PRN DAILY PRN MC SEE COMMENTS; Start 03/15/21 at 11:15 Vancomycin HCl (Vanco Per Pharmacy) 1 each PRN DAILY PRN MC SEE COMMENTS; Start 03/15/21 at 11:15; Stop 03/15/21 at 15:46; Status DC Piperacillin Sod/ Tazobactam Sod 3.375 gm/Sodium Chloride 50 ml @ 100 mls/hr 1X ONCE IV Last administered on 03/15/21at 11:58; Start 03/15/21 at 11:30; Stop 03/15/21 at 11:59; Status DC Ondansetron HCl (Zofran) 4 mg PRN Q8HRS PRN IVP NAUSEA/VOMITING; Start 03/15/21 at 13:15; Stop 03/16/21 at 13:14 Sodium Chloride 1,000 ml @ 125 mls/hr Q8H IV Last administered on 03/16/21at 06:00; Start 03/15/21 at 14:00; Stop 03/16/21 at 13:59 Acetaminophen (Tylenol) 650 mg PRN Q4HRS PRN PO FEVER > 100.3'F; Start 03/15/21 at 13:15; Stop 03/16/21 at 13:14 Vancomycin HCl 1.25 gm/Sodium Chloride 250 ml @ 166.667 mls/hr 1X ONCE IV Last administered on 03/15/21at 14:04; Start 03/15/21 at 14:00; Stop 03/15/21 at 15:29; Status DC Sodium Chloride 1,000 ml @ 1,000 mls/hr 1X ONCE IV Last administered on 03/15/21at 14:05; Start 03/15/21 at 13:30; Stop 03/15/21 at 14:29; Status DC Piperacillin Sod/ Tazobactam Sod 2.25 gm/Sodium Chloride 50 ml @ 100 mls/hr Q6HRS IV Last administered on 03/16/21at 06:00; Start 03/15/21 at 18:00 Linezolid/Dextrose 300 ml @ 300 mls/hr Q12HR IV Last administered on 03/16/21at 00:37; Start 03/15/21 at 21:00 Sodium Chloride (Normal Saline Flush) 3 ml QSHIFT PRN IV AFTER MEDS AND BLOOD DRAWS; Start 03/15/21 at 16:30 Ondansetron HCl (Zofran) 4 mg PRN Q4HRS PRN IV NAUSEA/VOMITING; Start 03/15/21 at 16:30 Acetaminophen (Tylenol) 650 mg PRN Q4HRS PRN PO TEMP OVER 100.4F OR MILD PAIN; Start 03/15/21 at 16:30 Acetaminophen (Tylenol Supp) 650 mg PRN Q4HRS PRN SC TEMP OVER 100.4F OR MILD PAIN; Start 03/15/21 at 16:30 Docusate Sodium (Colace) 100 mg PRN BID PRN PO HARD STOOLS; Start 03/15/21 at 16:30 Albuterol Sulfate (Ventolin Neb Soln) 2.5 mg PRN Q4HRS PRN NEB SHORTNESS OF BREATH; Start 03/15/21 at 16:30 Guaifenesin (Robitussin) 200 mg PRN Q4HRS PRN PO COUGH; Start 03/15/21 at 16:30 Sodium Chloride 1,000 ml @ 1,000 mls/hr 1X ONCE IV Last administered on 03/15/21at 17:00; Start 03/15/21 at 17:00; Stop 03/15/21 at 17:59; Status DC Potassium Bicarbonate (Potassium Effervescent Tablet) 40 meq 1X ONCE PO ; Start 03/16/21 at 08:30; Stop 03/16/21 at 08:31; Status DC Active Scripts Active Reported Mylanta Maximum Strength Liq (Mag Hydrox/Aluminum Hyd/Simeth) 355 Ml Oral.susp 355 Ml PO DAILY PRN Tylenol (Acetaminophen) 325 Mg Tablet 1-2 Tab PO QID PRN [magic mouthwash] Nystatin 100,000 Unit/1 Ml Oral.susp 5 Ml PO QID Tums (Calcium Carbonate) 300 Mg Tab.chew 300 Mg PO 2-3XD EXELON 9.5mg/24hr (Rivastigmine) 1 Each Patch.td24 1 Patch TP DAILY Mirtazapine 7.5 Mg Tablet 1 Tab PO QHS 30 Days Crestor (Rosuvastatin Calcium) 5 Mg Tablet 10 Mg PO HS Zyrtec (Cetirizine Hcl) 10 Mg Tablet 10 Mg PO HS Pepcid (Famotidine) 40 Mg Tablet 40 Mg PO BID [b1 vitamin] 1 B12 Active (Mecobalamin) 1,000 Mcg Tab.chew 1,000 Mcg PO DAILY [mvi] Wellbutrin Sr (Bupropion Hcl) 150 Mg Tablet.er 150 Mg PO DAILY Allergies Allergies: Coded Allergies: No Known Drug Allergies (Unverified , 03/15/21) ROS Review of System UNABLE TO OBTAIN Physical Exam General: Cooperative, No acute distress HEENT: Atraumatic, PERRLA, EOMI, Other (DRY MUCOSA) Lungs: Clear to auscultation, Normal air movement Heart: Regular rate, Other (? S4 AND MR) Abdomen: Normal bowel sounds, Soft, No tenderness Extremities: No cyanosis Skin: No breakdown Neuro: Other (CONFUSED) Psych/Mental Status: Other (CONFUSED AFFECT) MUSCULOSKELETAL: No joint tenderness, No deformity, No swelling, Other (CACHECTIC) Vitals VITALS Vital Signs Date Time Temp Pulse Resp B/P (MAP) Pulse Ox O2 Delivery O2 Flow Rate FiO2 03/16/21 07:00 97.5 86 20 119/55 (76) 100 Room Air 97.5 Labs Labs Laboratory Tests Test 03/15/21 11:25 03/15/21 11:26 03/15/21 11:50 03/15/21 15:20 White Blood Count 3.6 x10^3/uL (4.0-11.0) Red Blood Count 5.12 x10^6/uL (4.30-5.70) Hemoglobin 14.2 g/dL (13.0-17.5) Hematocrit 42.8 % (39.0-53.0) Mean Corpuscular Volume 84 fL (79-100) Mean Corpuscular Hemoglobin 28 pg (25-35) Mean Corpuscular Hemoglobin Concent 33 g/dL (31-37) Red Cell Distribution Width 19.8 % (11.5-14.5) Platelet Count 329 x10^3/uL (140-400) Neutrophils (%) (Auto) 73 % (31-73) Lymphocytes (%) (Auto) 23 % (24-48) Monocytes (%) (Auto) 3 % (0-9) Eosinophils (%) (Auto) 1 % (0-3) Basophils (%) (Auto) 0 % (0-3) Neutrophils # (Auto) 2.6 x10^3/uL (1.8-7.7) Lymphocytes # (Auto) 0.8 x10^3/uL (1.0-4.8) Monocytes # (Auto) 0.1 x10^3/uL (0.0-1.1) Eosinophils # (Auto) 0.0 x10^3/uL (0.0-0.7) Basophils # (Auto) 0.0 x10^3/uL (0.0-0.2) Segmented Neutrophils % 5 % (35-66) Band Neutrophils % 55 % (0-9) Lymphocytes % 23 % (24-48) Monocytes % 5 % (0-10) Eosinophils % 1 % (0-5) Metamyelocytes % 10 % (0-0) Myelocytes % 1 % (0-0) Nucleated Red Blood Cells 14 Dohle Bodies Present Platelet Estimate Adequate (ADEQUATE) Platelet Clumps, EDTA Polychromasia Occasional Anisocytosis Mod D-Dimer (Arleen) 2.23 ug/mlFEU (0.00-0.50) Sodium Level 143 mmol/L (136-145) Potassium Level 4.0 mmol/L (3.5-5.1) Chloride Level 106 mmol/L (98-107) Carbon Dioxide Level 14 mmol/L (21-32) Anion Gap 23 (6-14) Blood Urea Nitrogen 93 mg/dL (8-26) Creatinine 3.7 mg/dL (0.7-1.3) Estimated GFR (Cockcroft-Gault) 16.0 Glucose Level 107 mg/dL (70-99) Lactic Acid Level 5.6 mmol/L (0.4-2.0) 6.3 mmol/L (0.4-2.0) Calcium Level 8.8 mg/dL (8.5-10.1) Total Bilirubin 0.6 mg/dL (0.2-1.0) Direct Bilirubin 0.3 mg/dL (0.0-0.2) Aspartate Amino Transf (AST/SGOT) 33 U/L (15-37) Alanine Aminotransferase (ALT/SGPT) 17 U/L (16-63) Alkaline Phosphatase 183 U/L (46-116) Total Protein 5.8 g/dL (6.4-8.2) Albumin 2.3 g/dL (3.4-5.0) SARS-CoV-2 RNA (MARLEN) Negative (Negative) SARS-CoV-2 Antigen (Rapid) Negative (NEGATIVE) XX-Bfs-P-Type Natriuretic Peptide 9637 pg/mL (0-449) Test 03/16/21 04:58 White Blood Count 4.7 x10^3/uL (4.0-11.0) Red Blood Count 3.96 x10^6/uL (4.30-5.70) Hemoglobin 11.0 g/dL (13.0-17.5) Hematocrit 34.0 % (39.0-53.0) Mean Corpuscular Volume 86 fL (79-100) Mean Corpuscular Hemoglobin 28 pg (25-35) Mean Corpuscular Hemoglobin Concent 32 g/dL (31-37) Red Cell Distribution Width 22.4 % (11.5-14.5) Platelet Count 227 x10^3/uL (140-400) Neutrophils (%) (Auto) 81 % (31-73) Lymphocytes (%) (Auto) 14 % (24-48) Monocytes (%) (Auto) 3 % (0-9) Eosinophils (%) (Auto) 1 % (0-3) Basophils (%) (Auto) 0 % (0-3) Neutrophils # (Auto) 3.8 x10^3/uL (1.8-7.7) Lymphocytes # (Auto) 0.7 x10^3/uL (1.0-4.8) Monocytes # (Auto) 0.2 x10^3/uL (0.0-1.1) Eosinophils # (Auto) 0.1 x10^3/uL (0.0-0.7) Basophils # (Auto) 0.0 x10^3/uL (0.0-0.2) Sodium Level 146 mmol/L (136-145) Potassium Level 2.9 mmol/L (3.5-5.1) Chloride Level 115 mmol/L (98-107) Carbon Dioxide Level 13 mmol/L (21-32) Anion Gap 18 (6-14) Blood Urea Nitrogen 84 mg/dL (8-26) Creatinine 2.9 mg/dL (0.7-1.3) Estimated GFR (Cockcroft-Gault) 21.2 Glucose Level 62 mg/dL (70-99) Calcium Level 7.8 mg/dL (8.5-10.1) Magnesium Level 4.5 mg/dL (1.8-2.4) Laboratory Tests Test 03/15/21 11:25 03/15/21 11:26 03/15/21 11:50 03/15/21 15:20 White Blood Count 3.6 x10^3/uL (4.0-11.0) Red Blood Count 5.12 x10^6/uL (4.30-5.70) Hemoglobin 14.2 g/dL (13.0-17.5) Hematocrit 42.8 % (39.0-53.0) Mean Corpuscular Volume 84 fL (79-100) Mean Corpuscular Hemoglobin 28 pg (25-35) Mean Corpuscular Hemoglobin Concent 33 g/dL (31-37) Red Cell Distribution Width 19.8 % (11.5-14.5) Platelet Count 329 x10^3/uL (140-400) Neutrophils (%) (Auto) 73 % (31-73) Lymphocytes (%) (Auto) 23 % (24-48) Monocytes (%) (Auto) 3 % (0-9) Eosinophils (%) (Auto) 1 % (0-3) Basophils (%) (Auto) 0 % (0-3) Neutrophils # (Auto) 2.6 x10^3/uL (1.8-7.7) Lymphocytes # (Auto) 0.8 x10^3/uL (1.0-4.8) Monocytes # (Auto) 0.1 x10^3/uL (0.0-1.1) Eosinophils # (Auto) 0.0 x10^3/uL (0.0-0.7) Basophils # (Auto) 0.0 x10^3/uL (0.0-0.2) Segmented Neutrophils % 5 % (35-66) Band Neutrophils % 55 % (0-9) Lymphocytes % 23 % (24-48) Monocytes % 5 % (0-10) Eosinophils % 1 % (0-5) Metamyelocytes % 10 % (0-0) Myelocytes % 1 % (0-0) Nucleated Red Blood Cells 14 Dohle Bodies Present Platelet Estimate Adequate (ADEQUATE) Platelet Clumps, EDTA Polychromasia Occasional Anisocytosis Mod D-Dimer (Arleen) 2.23 ug/mlFEU (0.00-0.50) Sodium Level 143 mmol/L (136-145) Potassium Level 4.0 mmol/L (3.5-5.1) Chloride Level 106 mmol/L (98-107) Carbon Dioxide Level 14 mmol/L (21-32) Anion Gap 23 (6-14) Blood Urea Nitrogen 93 mg/dL (8-26) Creatinine 3.7 mg/dL (0.7-1.3) Estimated GFR (Cockcroft-Gault) 16.0 Glucose Level 107 mg/dL (70-99) Lactic Acid Level 5.6 mmol/L (0.4-2.0) 6.3 mmol/L (0.4-2.0) Calcium Level 8.8 mg/dL (8.5-10.1) Total Bilirubin 0.6 mg/dL (0.2-1.0) Direct Bilirubin 0.3 mg/dL (0.0-0.2) Aspartate Amino Transf (AST/SGOT) 33 U/L (15-37) Alanine Aminotransferase (ALT/SGPT) 17 U/L (16-63) Alkaline Phosphatase 183 U/L (46-116) Total Protein 5.8 g/dL (6.4-8.2) Albumin 2.3 g/dL (3.4-5.0) SARS-CoV-2 RNA (MARLEN) Negative (Negative) SARS-CoV-2 Antigen (Rapid) Negative (NEGATIVE) JH-Sbq-B-Type Natriuretic Peptide 9637 pg/mL (0-449) Test 03/16/21 04:58 White Blood Count 4.7 x10^3/uL (4.0-11.0) Red Blood Count 3.96 x10^6/uL (4.30-5.70) Hemoglobin 11.0 g/dL (13.0-17.5) Hematocrit 34.0 % (39.0-53.0) Mean Corpuscular Volume 86 fL (79-100) Mean Corpuscular Hemoglobin 28 pg (25-35) Mean Corpuscular Hemoglobin Concent 32 g/dL (31-37) Red Cell Distribution Width 22.4 % (11.5-14.5) Platelet Count 227 x10^3/uL (140-400) Neutrophils (%) (Auto) 81 % (31-73) Lymphocytes (%) (Auto) 14 % (24-48) Monocytes (%) (Auto) 3 % (0-9) Eosinophils (%) (Auto) 1 % (0-3) Basophils (%) (Auto) 0 % (0-3) Neutrophils # (Auto) 3.8 x10^3/uL (1.8-7.7) Lymphocytes # (Auto) 0.7 x10^3/uL (1.0-4.8) Monocytes # (Auto) 0.2 x10^3/uL (0.0-1.1) Eosinophils # (Auto) 0.1 x10^3/uL (0.0-0.7) Basophils # (Auto) 0.0 x10^3/uL (0.0-0.2) Sodium Level 146 mmol/L (136-145) Potassium Level 2.9 mmol/L (3.5-5.1) Chloride Level 115 mmol/L (98-107) Carbon Dioxide Level 13 mmol/L (21-32) Anion Gap 18 (6-14) Blood Urea Nitrogen 84 mg/dL (8-26) Creatinine 2.9 mg/dL (0.7-1.3) Estimated GFR (Cockcroft-Gault) 21.2 Glucose Level 62 mg/dL (70-99) Calcium Level 7.8 mg/dL (8.5-10.1) Magnesium Level 4.5 mg/dL (1.8-2.4) Images Images Single AP view of the chest. Comparison: None. Indication: Shortness of breath Findings: Left subclavian Port-A-Cath is seen with the tip in the mid SVC. The aorta is calcified. The heart is not enlarged. There is no pneumothorax or effusion. No air space or interstitial disease. Impression: 1. No acute cardiopulmonary process. Electronically signed by: Reinaldo Briones MD (03/15/2021 11:11 AM) [id number] US BILATERAL LOWEREXTREMITY VENOUS DOPPLER History: Reason: Leg color changes / Spl. Instructions: / History: Swelling Comparison: None. Technique: Multiple longitudinal and transverse high resolution real-time images of the venous system of bilateral lower extremity were obtained with color and Doppler sampling. Findings: The common femoral, superficial femoral, popliteal and proximal calf veins are all patent and demonstrate normal flow and compressibility. Normal respiratory phasicity and augmentation is present. Impression: 1. No evidence of deep vein thrombosis. Electronically signed by: Jean-Paul Juarez DO (03/15/2021 12:48 PM) [id number] Assessment/Plan Assessment/Plan IMP GLENDA HYPERNATREMIA HYPOKALEMIA AG MET ACIDOSIS LACTIC ACIDOSIS DIARRHEA CACHEXIA MALNUTRITION PROB SEPSIS HYPOTENSION IMMUNOCOMPROMISED STAGE 4 MET COLON CANCER PLAN HYDRATION SUPPLEMENT K NUTRITION ANTIBIOTICS PUI COVID POOR PROGNOSIS HE IS CRITICALLY ILL WILL FOLLOW RANDY EVANS MD Mar 16, 2021 10:51
[2021-03-16 11:00] VITALS: BP 114/55
--- NOTE | 2021-03-16 13:06 | CONS ---
DATE OF CONSULTATION: 03/16/2021 REFERRING PHYSICIAN: Dr. Gill. REASON FOR CONSULTATION: Sepsis. HISTORY OF PRESENT ILLNESS: A 75-year-old male with history of metastatic colon cancer, stage 4, who received chemotherapy about 10 days ago, presented with shortness of breath couple of days prior to admission. The patient cannot give any history. History obtained from chart and medical staff. He also had diarrhea. With poor p.o. intake, he was found to have leukopenia, GLENDA with metabolic acidosis, hypokalemia, hypernatremia and hyperchloremia. The patient has a Port-A-Cath in place in the left subclavian area. Blood cultures were done. COVID was negative. There is history of exposure to COVID positive person prior to admission. The patient was started on Zosyn and Zyvox. The patient was hypotensive on admission. Currently, he is on medical floor. Discussed with nursing staff. PAST MEDICAL HISTORY: Dementia, colon cancer with metastasis, left Port-A-Cath in the subclavian area, hypertension, depression, weakness. PAST SURGICAL HISTORY: Port-A-Cath. FAMILY HISTORY: As per HPI. SOCIAL HISTORY: No smoking, no alcohol, no drugs. Lives with family at home. CURRENT MEDICATIONS: Zosyn, Zyvox and also received a dose of vancomycin. Other medications reviewed in medication list. ALLERGIES: No known drug allergies. REVIEW OF SYSTEMS: Unable to obtain. PHYSICAL EXAMINATION: VITAL SIGNS: Temperature 97.5, pulse 86, respiratory rate 20, blood pressure 119/55, oxygen saturation 100% on room air. GENERAL: Cachectic, thin person, in no acute distress. HEENT: Normocephalic, atraumatic. Oral mucosa dry. Oral sores noted. NECK: Supple. LUNGS: Clear bilaterally. HEART: S1, S2. ABDOMEN: Soft, nontender, nondistended. Bowel sounds present. GENITOURINARY: No Parkinson, brace in place. Left subclavian Port-A-Cath site clean. EXTREMITIES: No edema, no cyanosis. DERMATOLOGIC: Warm, dry, no generalized rash. NEUROLOGIC: Slight confused, appears calm. MUSCULOSKELETAL: No joint swelling or decrease in range of motion noted. Generalized weakness. LABORATORY DATA: WBC 4.7, was 3.6; hemoglobin 11.0; hematocrit 34.0; platelets 227; neutrophil 81; bands 55. Sodium 146, potassium 2.9, chloride 115, bicarbonate 13, BUN 84, creatinine 2.9, glucose 62. Lactate 6.3, calcium 7.8, mag 4.5. BNP 9637. COVID-19 negative. D-dimer 2.23. IMAGING: Chest x-ray shows no acute cardiopulmonary process. Lower extremity Doppler ultrasound is negative for DVT. IMPRESSION: 1. Leukopenia. 2. Lactic acidosis, likely from dehydration. 3. Acute kidney injury. 4. Hypernatremia, hypokalemia, metabolic acidosis. 5. Diarrhea, Clostridium difficile pending. 6. Malnutrition. 7. History of dementia. 8. History of depression. 9. Left Port-A-Cath in place. 10. Generalized weakness. 11. Oral sores. RECOMMENDATIONS: 1. Continue empiric Zyvox and Zosyn. 2. Add micafungin. 3. Follow up labs and cultures. 4. Continue supportive care. 5. Prognosis is poor. The patient is critically ill. 6. Maintain aspiration precaution. 7. Optimize nutrition. Thank you for allowing me to participate in this patient's care. If you have any questions, do not hesitate to contact me. BIN/LAURA DR: Bailey TID: [id number] DELORES
[2021-03-16 15:00] VITALS: BP 111/53
--- NOTE | 2021-03-16 15:31 | NUR ---
SW following. Discussed with RN, pt from home with family. Family trying to decide between home health and hospice. Plan is for pt to move to his daughter's home in [place] upon discharge. [place] spoke with pt's daughter, Layla - she is waiting to see how pt does in the next day or so before making the final decision. SW will continue to follow.
[2021-03-16] MEDS: MICAFUNGIN 100 MG in IV DEXTROSE 5% 100ML 100 ML IV SCH (15:36)
[2021-03-16] MEDS: LIDO:MAALOX:BENADRYL 1:1:1 180 ML BOTTLE. PO PRN (15:37)
[2021-03-16] MEDS: fentaNYL PF VIAL 100 MCG/2 ML VIAL IVP PRN (17:48)
[2021-03-16 19:00] VITALS: BP 99/45
[2021-03-16 23:00] VITALS: BP 109/50
[2021-03-17 03:00] VITALS: BP 88/50
[2021-03-17] MEDS: fentaNYL PF VIAL 100 MCG/2 ML VIAL IVP PRN ×5 (03:53→23:10)
[2021-03-17] MEDS: PIPERACILLIN/TAZOBACTAM 2.25 GM in IV NORMAL SALINE 50ML 50 ML IV SCH ×3 (05:30→17:40)
[2021-03-17 07:00] VITALS: BP 100/57
--- NOTE | 2021-03-17 08:17 | PDOC ---
Infectious Disease Note Subjective: Subjective Patient remains nonverbal Afebrile Vital Signs: Vital Signs Vital Signs Date Time Temp Pulse Resp B/P (MAP) Pulse Ox O2 Delivery O2 Flow Rate FiO2 03/17/21 03:00 98.0 78 20 88/50 (63) 96 Room Air 98.0 03/16/21 17:48 2.0 Physical Exam: PHYSICAL EXAM GENERAL: Cachectic, thin person, in no acute distress.on RA confused HEENT: Normocephalic, atraumatic. Oral mucosa dry. Mouth lesions seen NECK: Supple. LUNGS: Clear bilaterally. HEART: S1, S2. ABDOMEN: Soft, nontender, nondistended. Bowel sounds present. GENITOURINARY: No Parkinson, brace in place. Left subclavian Port-A-Cath site clean. EXTREMITIES: No edema, no cyanosis. DERMATOLOGIC: Warm, dry, no generalized rash. NEUROLOGIC: confused, appears calm. MUSCULOSKELETAL: No joint swelling or decrease in range of motion noted. Generalized weakness. Medications: Inpatient Meds: Medications reviewed. Objective: Assessment: 1. Leukopenia. 2. Lactic acidosis, likely from dehydration. 3. Acute kidney injury. 4. Hypernatremia, hypokalemia, metabolic acidosis. 5. Diarrhea, Clostridium difficile pending. 6. Malnutrition. 7. Encephalopathy, History of dementia. 8. History of depression. 9. Left Port-A-Cath in place. 10. Generalized weakness. 11. Oral sores. Plan: Plan of Care 1. Continue Zyvox and Zosyn. 2. Cont micafungin. 3. Follow up labs and cultures. 4. Continue supportive care. 5. Prognosis is poor. 6. Maintain aspiration precaution. 7. Critically ill Discussed with nursing staff DWAIN VIEIRA MD Mar 17, 2021 08:17
[2021-03-17 09:22] LABS: CALCIUM 7.8 mg/dL (8.5-10.1); CREATININE 2.3 mg/dL (0.7-1.3); GFR 27.7; MAGNESIUM 3.4 mg/dL (1.8-2.4); PHOSPHORUS 3.4 mg/dL (2.6-4.7)
[2021-03-17 09:27] LABS: POTASSIUM 2.5 mmol/L (3.5-5.1)
--- NOTE | 2021-03-17 10:28 | PDOC ---
Renal-Progress Notes Subjective Notes Notes CONFUSED History of Present Illness Hx of present illness VERY ILL OVERALL, NOT MUCH IMPROVEMENT Vitals Vitals Vital Signs Date Time Temp Pulse Resp B/P (MAP) Pulse Ox O2 Delivery O2 Flow Rate FiO2 03/17/21 07:00 97.8 79 20 100/57 (71) 97 Room Air 97.8 03/16/21 17:48 2.0 Weight Weight [ ] I.O. Intake and Output Intake and Output 03/17/21 07:00 Intake Total 720 ml Output Total 575 ml Balance 145 ml Intake Oral 720 ml Output Stool Total 575 ml # Voids 1 Labs Labs Laboratory Tests Test 03/17/21 07:55 Sodium Level 153 mmol/L (136-145) Potassium Level 2.5 mmol/L (3.5-5.1) Chloride Level 120 mmol/L (98-107) Carbon Dioxide Level 15 mmol/L (21-32) Anion Gap 18 (6-14) Blood Urea Nitrogen 59 mg/dL (8-26) Creatinine 2.3 mg/dL (0.7-1.3) Estimated GFR (Cockcroft-Gault) 27.7 Glucose Level 58 mg/dL (70-99) Calcium Level 7.8 mg/dL (8.5-10.1) Phosphorus Level 3.4 mg/dL (2.6-4.7) Magnesium Level 3.4 mg/dL (1.8-2.4) Micro Micro Microbiology 03/15/21 Blood Culture - Preliminary, Resulted NO GROWTH AFTER 1 DAY Review of Systems Constitutional: yes: other (UNABLE TO OBTAIN DUE TO CONFUSION) Physical Exam General Appearance: no apparent distress Skin: warm Respiratory: decreased breath sounds Heart: S1S2 Abdomen: soft, bowel sounds present Genitourinary: bladder flat Extremities: pulses present Neurology: confused Musculoskeletal: Weakness Assessment Assessment IMP GLENDA-IMPROVED WITH CR DOWN TO 2.5 HYPERNATREMIA HYPOKALEMIA AG MET ACIDOSIS LACTIC ACIDOSIS DIARRHEA CACHEXIA MALNUTRITION PROB SEPSIS HYPOTENSION IMMUNOCOMPROMISED STAGE 4 MET COLON CANCER PLAN HYDRATION HCO3 GTT SUPPLEMENT K NUTRITION START PPN ANTIBIOTICS POOR PROGNOSIS HE IS CRITICALLY ILL WILL FOLLOW RANDY EVANS MD Mar 17, 2021 10:28
[2021-03-17] MEDS: AA 4.25 %/CALCIUM/LYTES/D5W 1,000 ML IV SCH ×2 (10:30→23:10)
[2021-03-17 11:00] VITALS: BP 120/53
--- NOTE | 2021-03-17 11:05 | PDOC2 ---
CONSULT Date of Consult Date of Consult DATE: 03/17/21 TIME: 10:50 Reason for Consult Reason for Consult: Metastatic colon cancer Referring Physician Referring Physician: Dr. Gill Identification/Chief Complaint Chief Complaint Weakness Source Source: Caregiver, Chart review, Patient History of Present Illness Reason for Visit: Jessee Ruiz is a 75-year-old male with recently diagnosed metastatic colon cancer who has been admitted to the hospital with generalized weakness. The patient was seen in my office 2 days ago. He is a resident of [facility]. He recently relocated to the [facility] to live with his daughter. He was diagnosed with metastatic colon cancer in December 2020. In January 2021, he started palliative systemic therapy with oral Xeloda and IV oxaliplatin (XELOX). He completed cycle 2 of capecitabine 1 week ago. Per his daughter, he started developing generalized weakness and diarrhea 1 day later. He was seen in medical oncology office earlier this week and was provided IV hydration and asked to return the next day for repeat clinical assessment. During his office visit, he was found to have new onset dyspnea. He was transferred to the emergency room for further evaluation. Due to worsening renal function, he has been unable to receive CT angiogram. He did receive a chest x-ray which was unremarkable. Blood cultures have been drawn and have been negative so far. Medical oncology consult has been requested due to the patient's diagnosis of colon cancer. Of note, the patient's functional status as recently as 1 week ago was ECOG 1. He was fully and independently ambulating and taking in nutrition without significant difficulty Since admission, renal function has improved and Cr is 2.3 today. Past Medical History Cardiovascular: HTN CENTRAL NERVOUS SYSTEM: Dementia Heme/Onc: Cancer, Other Psych: Depression Musculoskeletal: Weakness Family History Family History: Hypertension Social History No ALCOHOL: none Drugs: None Lives: with Family Current Problem List Problem List Problems Medical Problems: (1) Acute renal injury due to hypovolemia Status: Acute (2) Cachexia Status: Acute (3) Lactic acidosis Status: Acute Current Medications Current Medications Current Medications Sodium Chloride 1,000 ml @ 1,000 mls/hr 1X ONCE IV Last administered on 03/15/21at 11:57; Start 03/15/21 at 11:00; Stop 03/15/21 at 11:59; Status DC Piperacillin Sod/ Tazobactam Sod (Zosyn Per Pharmacy) 1 each PRN DAILY PRN MC SEE COMMENTS; Start 03/15/21 at 11:15 Vancomycin HCl (Vanco Per Pharmacy) 1 each PRN DAILY PRN MC SEE COMMENTS; Start 03/15/21 at 11:15; Stop 03/15/21 at 15:46; Status DC Piperacillin Sod/ Tazobactam Sod 3.375 gm/Sodium Chloride 50 ml @ 100 mls/hr 1X ONCE IV Last administered on 03/15/21at 11:58; Start 03/15/21 at 11:30; Stop 03/15/21 at 11:59; Status DC Ondansetron HCl (Zofran) 4 mg PRN Q8HRS PRN IVP NAUSEA/VOMITING; Start 03/15/21 at 13:15; Stop 03/16/21 at 13:14; Status DC Sodium Chloride 1,000 ml @ 125 mls/hr Q8H IV Last administered on 03/16/21at 06:00; Start 03/15/21 at 14:00; Stop 03/16/21 at 13:59; Status DC Acetaminophen (Tylenol) 650 mg PRN Q4HRS PRN PO FEVER > 100.3'F; Start 03/15/21 at 13:15; Stop 03/16/21 at 13:14; Status DC Vancomycin HCl 1.25 gm/Sodium Chloride 250 ml @ 166.667 mls/hr 1X ONCE IV Last administered on 03/15/21at 14:04; Start 03/15/21 at 14:00; Stop 03/15/21 at 15:29; Status DC Sodium Chloride 1,000 ml @ 1,000 mls/hr 1X ONCE IV Last administered on 03/15/21at 14:05; Start 03/15/21 at 13:30; Stop 03/15/21 at 14:29; Status DC Piperacillin Sod/ Tazobactam Sod 2.25 gm/Sodium Chloride 50 ml @ 100 mls/hr Q6HRS IV Last administered on 03/17/21at 05:30; Start 03/15/21 at 18:00 Linezolid/Dextrose 300 ml @ 300 mls/hr Q12HR IV Last administered on 03/17/21at 09:51; Start 03/15/21 at 21:00 Sodium Chloride (Normal Saline Flush) 3 ml QSHIFT PRN IV AFTER MEDS AND BLOOD DRAWS; Start 03/15/21 at 16:30 Ondansetron HCl (Zofran) 4 mg PRN Q4HRS PRN IV NAUSEA/VOMITING; Start 03/15/21 at 16:30 Acetaminophen (Tylenol) 650 mg PRN Q4HRS PRN PO TEMP OVER 100.4F OR MILD PAIN; Start 03/15/21 at 16:30 Acetaminophen (Tylenol Supp) 650 mg PRN Q4HRS PRN ID TEMP OVER 100.4F OR MILD PAIN; Start 03/15/21 at 16:30 Docusate Sodium (Colace) 100 mg PRN BID PRN PO HARD STOOLS; Start 03/15/21 at 16:30 Albuterol Sulfate (Ventolin Neb Soln) 2.5 mg PRN Q4HRS PRN NEB SHORTNESS OF BREATH; Start 03/15/21 at 16:30 Guaifenesin (Robitussin) 200 mg PRN Q4HRS PRN PO COUGH; Start 03/15/21 at 16:30 Sodium Chloride 1,000 ml @ 1,000 mls/hr 1X ONCE IV Last administered on 03/15/21at 17:00; Start 03/15/21 at 17:00; Stop 03/15/21 at 17:59; Status DC Potassium Bicarbonate (Potassium Effervescent Tablet) 40 meq 1X ONCE PO Last administered on 03/16/21at 12:03; Start 03/16/21 at 08:30; Stop 03/16/21 at 08:31; Status DC Micafungin Sodium 100 mg/Dextrose 100 ml @ 100 mls/hr Q24H IV Last administered on 03/16/21at 15:36; Start 03/16/21 at 13:00 Multi-Ingredient Mouthwash/Gargle (Magic Mouthwash) 10 ml PRN QID PRN PO MOUTH PAIN Last administered on 03/16/21at 15:37; Start 03/16/21 at 14:30 Fentanyl Citrate (Fentanyl 2ml Vial) 25 mcg PRN Q3HRS PRN IVP SEVERE PAIN 7-10 Last administered on 03/17/21at 03:53; Start 03/16/21 at 17:45 Potassium Chloride/Water 100 ml @ 100 mls/hr Q1H IV ; Start 03/17/21 at 10:00; Stop 03/17/21 at 11:59 Sodium Bicarbonate 50 meq/Sodium Chloride 1,050 ml @ 50 mls/hr Q21H IV ; Start 03/17/21 at 12:00 Amino Acids/ Electrolytes/ Dextrose 1,000 ml @ 80 mls/hr [id number] IV ; Start 03/17/21 at 10:30 Active Scripts Active Reported Mylanta Maximum Strength Liq (Mag Hydrox/Aluminum Hyd/Simeth) 355 Ml Oral.susp 355 Ml PO DAILY PRN Tylenol (Acetaminophen) 325 Mg Tablet 1-2 Tab PO QID PRN [magic mouthwash] Nystatin 100,000 Unit/1 Ml Oral.susp 5 Ml PO QID Tums (Calcium Carbonate) 300 Mg Tab.chew 300 Mg PO 2-3XD EXELON 9.5mg/24hr (Rivastigmine) 1 Each Patch.td24 1 Patch TP DAILY Mirtazapine 7.5 Mg Tablet 1 Tab PO QHS 30 Days Crestor (Rosuvastatin Calcium) 5 Mg Tablet 10 Mg PO HS Zyrtec (Cetirizine Hcl) 10 Mg Tablet 10 Mg PO HS Pepcid (Famotidine) 40 Mg Tablet 40 Mg PO BID [b1 vitamin] 1 B12 Active (Mecobalamin) 1,000 Mcg Tab.chew 1,000 Mcg PO DAILY [mvi] Wellbutrin Sr (Bupropion Hcl) 150 Mg Tablet.er 150 Mg PO DAILY Allergies Allergies: Coded Allergies: No Known Drug Allergies (Unverified , 03/15/21) ROS Review of System Negative unless stated otherwise in HPI Physical Exam Physical Exam General: Awake, nodding in response to questions. Attempting to communicate with daughter Head: Oral mucositis noted Neck: Supple, no lymphadenopathy Chest: No trauma noted Cardiovascular: Regular rhythm, normal rate, no murmurs Respiratory: Bilateral air entry noted, lungs clear to auscultation bilaterally. No accessory muscle use Abdominal: Abdomen is soft, nontender, nondistended. Bowel sounds were normal. No hepatomegaly or splenomegaly Musculoskeletal: No deformity noted Extremities: No edema noted Skin: No rash or lesions Neurologic: Full neurologic exam not performed Psychiatric: Unable to assess Vitals VITALS Vital Signs Date Time Temp Pulse Resp B/P (MAP) Pulse Ox O2 Delivery O2 Flow Rate FiO2 03/17/21 07:00 97.8 79 20 100/57 (71) 97 Room Air 97.8 03/16/21 17:48 2.0 Labs Labs Laboratory Tests Test 03/15/21 11:25 03/15/21 11:26 03/15/21 11:50 03/15/21 15:20 White Blood Count 3.6 x10^3/uL (4.0-11.0) Red Blood Count 5.12 x10^6/uL (4.30-5.70) Hemoglobin 14.2 g/dL (13.0-17.5) Hematocrit 42.8 % (39.0-53.0) Mean Corpuscular Volume 84 fL (79-100) Mean Corpuscular Hemoglobin 28 pg (25-35) Mean Corpuscular Hemoglobin Concent 33 g/dL (31-37) Red Cell Distribution Width 19.8 % (11.5-14.5) Platelet Count 329 x10^3/uL (140-400) Neutrophils (%) (Auto) 73 % (31-73) Lymphocytes (%) (Auto) 23 % (24-48) Monocytes (%) (Auto) 3 % (0-9) Eosinophils (%) (Auto) 1 % (0-3) Basophils (%) (Auto) 0 % (0-3) Neutrophils # (Auto) 2.6 x10^3/uL (1.8-7.7) Lymphocytes # (Auto) 0.8 x10^3/uL (1.0-4.8) Monocytes # (Auto) 0.1 x10^3/uL (0.0-1.1) Eosinophils # (Auto) 0.0 x10^3/uL (0.0-0.7) Basophils # (Auto) 0.0 x10^3/uL (0.0-0.2) Segmented Neutrophils % 5 % (35-66) Band Neutrophils % 55 % (0-9) Lymphocytes % 23 % (24-48) Monocytes % 5 % (0-10) Eosinophils % 1 % (0-5) Metamyelocytes % 10 % (0-0) Myelocytes % 1 % (0-0) Nucleated Red Blood Cells 14 Dohle Bodies Present Platelet Estimate Adequate (ADEQUATE) Platelet Clumps, EDTA Polychromasia Occasional Anisocytosis Mod D-Dimer (Arleen) 2.23 ug/mlFEU (0.00-0.50) Sodium Level 143 mmol/L (136-145) Potassium Level 4.0 mmol/L (3.5-5.1) Chloride Level 106 mmol/L (98-107) Carbon Dioxide Level 14 mmol/L (21-32) Anion Gap 23 (6-14) Blood Urea Nitrogen 93 mg/dL (8-26) Creatinine 3.7 mg/dL (0.7-1.3) Estimated GFR (Cockcroft-Gault) 16.0 Glucose Level 107 mg/dL (70-99) Lactic Acid Level 5.6 mmol/L (0.4-2.0) 6.3 mmol/L (0.4-2.0) Calcium Level 8.8 mg/dL (8.5-10.1) Total Bilirubin 0.6 mg/dL (0.2-1.0) Direct Bilirubin 0.3 mg/dL (0.0-0.2) Aspartate Amino Transf (AST/SGOT) 33 U/L (15-37) Alanine Aminotransferase (ALT/SGPT) 17 U/L (16-63) Alkaline Phosphatase 183 U/L (46-116) Total Protein 5.8 g/dL (6.4-8.2) Albumin 2.3 g/dL (3.4-5.0) SARS-CoV-2 RNA (MARLEN) Negative (Negative) SARS-CoV-2 Antigen (Rapid) Negative (NEGATIVE) RW-Mai-U-Type Natriuretic Peptide 9637 pg/mL (0-449) Test 03/16/21 04:58 03/17/21 07:55 White Blood Count 4.7 x10^3/uL (4.0-11.0) Red Blood Count 3.96 x10^6/uL (4.30-5.70) Hemoglobin 11.0 g/dL (13.0-17.5) Hematocrit 34.0 % (39.0-53.0) Mean Corpuscular Volume 86 fL (79-100) Mean Corpuscular Hemoglobin 28 pg (25-35) Mean Corpuscular Hemoglobin Concent 32 g/dL (31-37) Red Cell Distribution Width 22.4 % (11.5-14.5) Platelet Count 227 x10^3/uL (140-400) Neutrophils (%) (Auto) 81 % (31-73) Lymphocytes (%) (Auto) 14 % (24-48) Monocytes (%) (Auto) 3 % (0-9) Eosinophils (%) (Auto) 1 % (0-3) Basophils (%) (Auto) 0 % (0-3) Neutrophils # (Auto) 3.8 x10^3/uL (1.8-7.7) Lymphocytes # (Auto) 0.7 x10^3/uL (1.0-4.8) Monocytes # (Auto) 0.2 x10^3/uL (0.0-1.1) Eosinophils # (Auto) 0.1 x10^3/uL (0.0-0.7) Basophils # (Auto) 0.0 x10^3/uL (0.0-0.2) Sodium Level 146 mmol/L (136-145) 153 mmol/L (136-145) Potassium Level 2.9 mmol/L (3.5-5.1) 2.5 mmol/L (3.5-5.1) Chloride Level 115 mmol/L (98-107) 120 mmol/L (98-107) Carbon Dioxide Level 13 mmol/L (21-32) 15 mmol/L (21-32) Anion Gap 18 (6-14) 18 (6-14) Blood Urea Nitrogen 84 mg/dL (8-26) 59 mg/dL (8-26) Creatinine 2.9 mg/dL (0.7-1.3) 2.3 mg/dL (0.7-1.3) Estimated GFR (Cockcroft-Gault) 21.2 27.7 Glucose Level 62 mg/dL (70-99) 58 mg/dL (70-99) Calcium Level 7.8 mg/dL (8.5-10.1) 7.8 mg/dL (8.5-10.1) Magnesium Level 4.5 mg/dL (1.8-2.4) 3.4 mg/dL (1.8-2.4) Phosphorus Level 3.4 mg/dL (2.6-4.7) Laboratory Tests Test 03/17/21 07:55 Sodium Level 153 mmol/L (136-145) Potassium Level 2.5 mmol/L (3.5-5.1) Chloride Level 120 mmol/L (98-107) Carbon Dioxide Level 15 mmol/L (21-32) Anion Gap 18 (6-14) Blood Urea Nitrogen 59 mg/dL (8-26) Creatinine 2.3 mg/dL (0.7-1.3) Estimated GFR (Cockcroft-Gault) 27.7 Glucose Level 58 mg/dL (70-99) Calcium Level 7.8 mg/dL (8.5-10.1) Phosphorus Level 3.4 mg/dL (2.6-4.7) Magnesium Level 3.4 mg/dL (1.8-2.4) Assessment/Plan Assessment/Plan Assessment: Metastatic colon cancer, (stage IV) on palliative systemic therapy Normocytic anemia, secondary to chronic disease Mucositis from chemotherapy Diarrhea, likely secondary to chemotherapy GLENDA, improved Hypokalemia Recommendations: -Check C difficile for evaluation of diarrhea -Continue supportive care for mucositis: magic mouthwash and nystatin swish and swallow -FU blood cultures. Check UA to eval for UTI -Follow nephrology recs reg management of GLENDA< currently improving -Replace K per protocol -Rest per primary service -Discussed that further systemic therapy may carry significant risks. Will follow progress of clinical course and plan to review goals of care -Will follow while inpatient and arrange office follow-up SOLEDAD NICHOLE MD Mar 17, 2021 11:05
[2021-03-17] MEDS ORDERED: POTASSIUM CHLORIDE 20MEQ 100 ML IV ONE (11:45)
--- NOTE | 2021-03-17 11:46 | PDOC ---
[employer] PROGRESS NOTE Date of Service DOS: DATE: 03/17/21 TIME: 11:45 Chief Complaint Chief Complaint A/P: Lactic acidosis Stage 4 metastatic colon cancer Left subclavian Port-A-Cath Acute renal injury due to hypovolemia Cachexia Severe protein-caloric malnutrition SEPSIS History of Present Illness History of Present Illness 75-year-old male with a history of metastatic colon cancer, Alzheimer's presented to the emergency department with shortness of breath for the past several days.seen by his oncologist yesterday and was found to have an acute kidney injury, last round of chemotherapy was approximately 10 days ago and he has had a total of 3 rounds of chemotherapy. has complained of diarrhea since his chemotherapy. hx compromised due to baseline Alzheimer's dementia hx Stage 4 metastatic colon cancer Left subclavian Port-A-Cath Acute renal injury due to hypovolemia / Cachexia / Severe protein-caloric malnutrition cr 3.7 03/16: K2.9 today. Just feeling tired this is only complaint. Afebrile. Mouth is sore, critically ill. K2.5 today, creatinine improved to 2.3. He is vocalizing a little better today. His daughter is bedside. Vitals/I&O Vitals/I&O: Vital Signs Date Time Temp Pulse Resp B/P (MAP) Pulse Ox O2 Delivery O2 Flow Rate FiO2 03/17/21 11:00 97.9 70 20 120/53 (75) 98 Room Air 97.9 03/16/21 17:48 2.0 I & O 03/16/21 03/16/21 03/17/21 14:59 22:59 06:59 Intake Total 480 ml 240 ml Output Total 475 ml 100 ml Balance 480 ml -235 ml -100 ml Physical Exam Physical Exam: GENERAL: Cachectic, thin person, in no acute distress.on RA confused HEENT: Normocephalic, atraumatic. Oral mucosa dry. Mouth lesions seen NECK: Supple. LUNGS: Clear bilaterally. HEART: S1, S2. ABDOMEN: Soft, nontender, nondistended. Bowel sounds present. GENITOURINARY: No Parkinson, brace in place. Left subclavian Port-A-Cath site clean. EXTREMITIES: No edema, no cyanosis. DERMATOLOGIC: Warm, dry, no generalized rash. NEUROLOGIC: confused, appears calm. MUSCULOSKELETAL: No joint swelling or decrease in range of motion noted. Generalized weakness. General: Cooperative, No acute distress Heart: Regular rate, Other (? S4 AND MR) Abdomen: Normal bowel sounds, Soft, No tenderness Extremities: No cyanosis Skin: No breakdown Labs Labs: Laboratory Tests Test 03/17/21 07:55 03/17/21 09:43 Sodium Level 153 mmol/L (136-145) Potassium Level 2.5 mmol/L (3.5-5.1) Chloride Level 120 mmol/L (98-107) Carbon Dioxide Level 15 mmol/L (21-32) Anion Gap 18 (6-14) Blood Urea Nitrogen 59 mg/dL (8-26) Creatinine 2.3 mg/dL (0.7-1.3) Estimated GFR (Cockcroft-Gault) 27.7 Glucose Level 58 mg/dL (70-99) Calcium Level 7.8 mg/dL (8.5-10.1) Phosphorus Level 3.4 mg/dL (2.6-4.7) Magnesium Level 3.4 mg/dL (1.8-2.4) Lactic Acid Level 4.2 mmol/L (0.4-2.0) Assessment and Plan Assessmemt and Plan Problems Medical Problems: (1) Acute renal injury due to hypovolemia Status: Acute (2) Cachexia Status: Acute (3) Lactic acidosis Status: Acute Comment Review of Relevant I have reviewed the following items day (where applicable) has been applied. Medications: Current Medications Medications (Trade) Dose Ordered Sig/Cornelio Route PRN Reason Start Time Stop Time Status Last Admin Dose Admin Micafungin Sodium 100 mg/Dextrose 100 ml @ 100 mls/hr Q24H IV 03/16/21 13:00 03/16/21 15:36 Multi-Ingredient Mouthwash/Gargle (Magic Mouthwash) 10 ml PRN QID PRN PO MOUTH PAIN 03/16/21 14:30 03/16/21 15:37 Fentanyl Citrate (Fentanyl 2ml Vial) 25 mcg PRN Q3HRS PRN IVP SEVERE PAIN 7-10 03/16/21 17:45 03/17/21 03:53 Justifications for Admission General Conditions Elevated Lactate?: Yes Justification for admission: Patient has tachycardia (> 100 beats per minute) or hypotension (SBP < 90 mm Hg) leading to inadequate systemic perfusion as indicated by lactate of greater or equal to 2.5 mmol/L. Other Justification ANNE MARIE BAH MD Mar 17, 2021 11:46
[2021-03-17] MEDS: POTASSIUM CHLORIDE 10MEQ 100 ML IV SCH ×4 (11:56→17:48)
[2021-03-17] MEDS ORDERED: SODIUM BICARBONATE VIAL 50 MEQ in IV 1/2 NORMAL SALINE 1,000 ML IV SCH (12:00)
[2021-03-17 15:00] VITALS: BP 102/67
[2021-03-17] MEDS: LIDO:MAALOX:BENADRYL 1:1:1 180 ML BOTTLE. PO PRN ×2 (17:52→23:00)
[2021-03-17 19:00] VITALS: BP 119/59
[2021-03-17] MEDS: MICAFUNGIN 100 MG in IV DEXTROSE 5% 100ML 100 ML IV SCH (19:53)
[2021-03-17 23:00] VITALS: BP 113/54
[2021-03-18] MEDS: PIPERACILLIN/TAZOBACTAM 2.25 GM in IV NORMAL SALINE 50ML 50 ML IV SCH ×2 (00:13→05:45)
[2021-03-18] MEDS: HYDROmorphone 2 MG/ML VIAL IVP PRN ×2 (01:45→05:50)
[2021-03-18 03:00] VITALS: BP 111/55
[2021-03-18 04:33] LABS: CALCIUM 8.3 mg/dL (8.5-10.1); CREATININE 2.9 mg/dL (0.7-1.3); GFR 21.2; MAGNESIUM 3.7 mg/dL (1.8-2.4); PHOSPHORUS 4.9 mg/dL (2.6-4.7); POTASSIUM 3.2 mmol/L (3.5-5.1)
[2021-03-18 07:00] VITALS: BP 91/50
--- NOTE | 2021-03-18 08:10 | PDOC ---
Infectious Disease Note Subjective: Subjective Patient's condition has deteriorated Obtunded tacypneic,Nonrebreather Respiratory therapist had suction more than a liter of greenish-brown fluid Daughter at bedside Vital Signs: Vital Signs Vital Signs Date Time Temp Pulse Resp B/P (MAP) Pulse Ox O2 Delivery O2 Flow Rate FiO2 03/18/21 03:00 90 22 111/55 (73) 90 Room Air 03/17/21 23:00 97.6 97.6 03/17/21 20:00 2.0 Physical Exam: PHYSICAL EXAM GENERAL: Cachectic, thin person obtunded, pale looking, on rebreather HEENT: Ashen blackburn skin LUNGS: Coarse bilaterally. HEART: S1, S2. ABDOMEN: Soft, nontender, nondistended. Bowel sounds present. GENITOURINARY: No Parkinson, Left subclavian Port-A-Cath site clean. EXTREMITIES: No edema, no cyanosis. SCDs in place DERMATOLOGIC: Warm, dry, no generalized rash. NEUROLOGIC: Obtunded Medications: Inpatient Meds: Medications reviewed. Labs: Lab Laboratory Tests Test 03/17/21 09:43 03/17/21 14:20 03/18/21 04:08 Lactic Acid Level 4.2 mmol/L (0.4-2.0) 4.3 mmol/L (0.4-2.0) Sodium Level 148 mmol/L (136-145) Potassium Level 3.2 mmol/L (3.5-5.1) Chloride Level 115 mmol/L (98-107) Carbon Dioxide Level 15 mmol/L (21-32) Anion Gap 18 (6-14) Blood Urea Nitrogen 67 mg/dL (8-26) Creatinine 2.9 mg/dL (0.7-1.3) Estimated GFR (Cockcroft-Gault) 21.2 Glucose Level 104 mg/dL (70-99) Calcium Level 8.3 mg/dL (8.5-10.1) Phosphorus Level 4.9 mg/dL (2.6-4.7) Magnesium Level 3.7 mg/dL (1.8-2.4) Objective: Assessment: 1. Leukopenia. Resolved 2. Lactic acidosis, 3. Acute kidney injury. 4. Hypernatremia, hypokalemia, metabolic acidosis. 5. Diarrhea, Clostridium difficile negative 6. Malnutrition. 7. Encephalopathy, History of dementia. 8. History of depression. 9. Left Port-A-Cath in place. 10. Generalized weakness. 11. Oral sores. Plan: Plan of Care Patient's condition has deteriorated Patient will not likely survive this hospitalization Continue empiric antibiotics Continue aggressive pulmonary toilet Continue supportive care. Maintain aspiration precaution. Daughter is leaning towards comfort measures She has asked her family to visit the patient today Prognosis very poor DWAIN VIEIRA MD Mar 18, 2021 08:09
--- NOTE | 2021-03-18 08:45 | PDOC ---
[employer] PROGRESS NOTE Date of Service DOS: DATE: 03/18/21 TIME: 08:45 Chief Complaint Chief Complaint A/P: Lactic acidosis Stage 4 metastatic colon cancer Left subclavian Port-A-Cath Acute renal injury due to hypovolemia Cachexia Severe protein-caloric malnutrition SEPSIS History of Present Illness History of Present Illness 75-year-old male with a history of metastatic colon cancer, Alzheimer's presented to the emergency department with shortness of breath for the past several days.seen by his oncologist yesterday and was found to have an acute kidney injury, last round of chemotherapy was approximately 10 days ago and he has had a total of 3 rounds of chemotherapy. has complained of diarrhea since his chemotherapy. hx compromised due to baseline Alzheimer's dementia hx Stage 4 metastatic colon cancer Left subclavian Port-A-Cath Acute renal injury due to hypovolemia / Cachexia / Severe protein-caloric malnutrition cr 3.7 03/16: K2.9 today. Just feeling tired this is only complaint. Afebrile. Mouth is sore, critically ill. 03/17: K2.5 today, creatinine improved to 2.3. He is vocalizing today, but barely audible. His daughter is bedside. Overnight severe pain well controlled with minimal dose of Dilaudid. This morning had some respiratory distress and had over a liter of greenish-brown fluid suctioned. Family is bedside. Labs were sent again. Long discussion undertaken bedside family understanding is actively dying and of asked to transition to comfort measures and speak with hospice Vitals/I&O Vitals/I&O: Vital Signs Date Time Temp Pulse Resp B/P (MAP) Pulse Ox O2 Delivery O2 Flow Rate FiO2 03/18/21 03:00 90 22 111/55 (73) 90 Room Air 03/17/21 23:00 97.6 97.6 03/17/21 20:00 2.0 I & O 03/17/21 03/17/21 03/18/21 15:00 23:00 07:00 Intake Total 50 ml 0 ml 0 ml Balance 50 ml 0 ml 0 ml Physical Exam Physical Exam: GENERAL: Cachectic, thin person, in no acute distress.on RA confused HEENT: Normocephalic, atraumatic. Oral mucosa dry. Mouth lesions seen NECK: Supple. LUNGS: Clear bilaterally. HEART: S1, S2. ABDOMEN: Soft, nontender, nondistended. Bowel sounds present. GENITOURINARY: No Parkinson, brace in place. Left subclavian Port-A-Cath site clean. EXTREMITIES: No edema, no cyanosis. DERMATOLOGIC: Warm, dry, no generalized rash. NEUROLOGIC: confused, appears calm. MUSCULOSKELETAL: No joint swelling or decrease in range of motion noted. Generalized weakness. General: Cooperative, No acute distress Heart: Regular rate, Other (? S4 AND MR) Abdomen: Normal bowel sounds, Soft, No tenderness Extremities: No cyanosis Skin: No breakdown Labs Labs: Laboratory Tests Test 03/17/21 09:43 03/17/21 14:20 03/18/21 04:08 Lactic Acid Level 4.2 mmol/L (0.4-2.0) 4.3 mmol/L (0.4-2.0) Sodium Level 148 mmol/L (136-145) Potassium Level 3.2 mmol/L (3.5-5.1) Chloride Level 115 mmol/L (98-107) Carbon Dioxide Level 15 mmol/L (21-32) Anion Gap 18 (6-14) Blood Urea Nitrogen 67 mg/dL (8-26) Creatinine 2.9 mg/dL (0.7-1.3) Estimated GFR (Cockcroft-Gault) 21.2 Glucose Level 104 mg/dL (70-99) Calcium Level 8.3 mg/dL (8.5-10.1) Phosphorus Level 4.9 mg/dL (2.6-4.7) Magnesium Level 3.7 mg/dL (1.8-2.4) Assessment and Plan Assessmemt and Plan Problems Medical Problems: (1) Acute renal injury due to hypovolemia Status: Acute (2) Cachexia Status: Acute (3) Lactic acidosis Status: Acute Comment Review of Relevant I have reviewed the following items day (where applicable) has been applied. Medications: Current Medications Medications (Trade) Dose Ordered Sig/Cornelio Route PRN Reason Start Time Stop Time Status Last Admin Dose Admin Potassium Chloride/Water 100 ml @ 100 mls/hr Q1H IV 03/17/21 10:00 03/17/21 11:59 DC 03/17/21 14:17 Sodium Bicarbonate 50 meq/Sodium Chloride 1,050 ml @ 50 mls/hr Q21H IV 03/17/21 12:00 03/17/21 14:34 Amino Acids/ Electrolytes/ Dextrose 1,000 ml @ 80 mls/hr [id number] IV 03/17/21 10:30 03/17/21 23:10 Potassium Chloride/Water 100 ml @ 100 mls/hr Q1H IV 03/17/21 14:00 03/17/21 15:59 DC 03/17/21 17:48 Hydromorphone HCl (Dilaudid) 0.5 mg PRN Q3HRS PRN IVP PAIN 03/18/21 01:45 03/18/21 05:50 Justifications for Admission General Conditions Elevated Lactate?: Yes Justification for admission: Patient has tachycardia (> 100 beats per minute) or hypotension (SBP < 90 mm Hg) leading to inadequate systemic perfusion as indicated by lactate of greater or equal to 2.5 mmol/L. Other Justification ANNE MARIE BAH MD Mar 18, 2021 08:45
--- NOTE | 2021-03-18 09:15 | NUR ---
PATIENT OBTUNDED THIS AM, LUNGS COARSE, HOB ELEVATED, NO VERBAL RESPONSES GIVEN, PATIENT CLOTH SHRINKER ARE WEAK IN BILAT. HANDS, NO S/S OF PAIN/DISCOMFORT NOTICED, PATIENTS' DAUGHTER AT THE BEDSIDE AT THIS TIME, PATIENT SUCTIONED BY RT AND APPROX. 1 LITER OF GREENISH BROWN SECRETIONS OBTAINED, PATIENT PLACED ON A NON REBREATHER. PATIENTS DAUGHTER REQUESTING TO HOLD AM DOSE OF ZYVOX AND WANTS PATIENT TO HAVE COMFORT MEASURES ONLY, WILL INFORM MD.
[2021-03-18 09:26] LABS: BASO % 0 % (0-3); EOS # 0.1 x10^3/uL (0.0-0.7); EOS % 0 % (0-3); HEMATOCRIT 38.5 % (39.0-53.0); HEMOGLOBIN 12.3 g/dL (13.0-17.5); LYMPH # 1.6 x10^3/uL (1.0-4.8); LYMPH % 11 % (24-48); MEAN CORPUSCULAR HEMOGLOBIN 27 pg (25-35); MEAN CORPUSCULAR HGB CONC 32 g/dL (31-37); MEAN CORPUSCULAR VOLUME 85 fL (79-100); MONO # 0.2 x10^3/uL (0.0-1.1); MONO % 1 % (0-9); NEUT # 13.1 x10^3/uL (1.8-7.7); NEUT % 87 % (31-73); PLATELET COUNT 146 x10^3/uL (140-400); RED BLOOD COUNT 4.52 x10^6/uL (4.30-5.70); RED CELL DISTRIBUTION WIDTH 24.8 % (11.5-14.5)
--- NOTE | 2021-03-18 11:07 | PDOC ---
Renal-Progress Notes Subjective Notes Notes ON FM APPEARS COMFORTABLE History of Present Illness Hx of present illness DECLINING, FAMILY AT BEDSIDE Vitals Vitals Vital Signs Date Time Temp Pulse Resp B/P (MAP) Pulse Ox O2 Delivery O2 Flow Rate FiO2 03/18/21 08:48 93 NonRebreather Mask 03/18/21 08:00 2.0 03/18/21 07:00 96.8 103 24 91/50 (64) 96.8 Weight Weight [ ] I.O. Intake and Output Intake and Output 03/18/21 07:00 Intake Total 50 ml Balance 50 ml Intake Oral 50 ml Labs Labs Laboratory Tests Test 03/17/21 14:20 03/18/21 04:08 Lactic Acid Level 4.3 mmol/L (0.4-2.0) White Blood Count 15.0 x10^3/uL (4.0-11.0) Red Blood Count 4.52 x10^6/uL (4.30-5.70) Hemoglobin 12.3 g/dL (13.0-17.5) Hematocrit 38.5 % (39.0-53.0) Mean Corpuscular Volume 85 fL (79-100) Mean Corpuscular Hemoglobin 27 pg (25-35) Mean Corpuscular Hemoglobin Concent 32 g/dL (31-37) Red Cell Distribution Width 24.8 % (11.5-14.5) Platelet Count 146 x10^3/uL (140-400) Neutrophils (%) (Auto) 87 % (31-73) Lymphocytes (%) (Auto) 11 % (24-48) Monocytes (%) (Auto) 1 % (0-9) Eosinophils (%) (Auto) 0 % (0-3) Basophils (%) (Auto) 0 % (0-3) Neutrophils # (Auto) 13.1 x10^3/uL (1.8-7.7) Lymphocytes # (Auto) 1.6 x10^3/uL (1.0-4.8) Monocytes # (Auto) 0.2 x10^3/uL (0.0-1.1) Eosinophils # (Auto) 0.1 x10^3/uL (0.0-0.7) Basophils # (Auto) 0.0 x10^3/uL (0.0-0.2) Sodium Level 148 mmol/L (136-145) Potassium Level 3.2 mmol/L (3.5-5.1) Chloride Level 115 mmol/L (98-107) Carbon Dioxide Level 15 mmol/L (21-32) Anion Gap 18 (6-14) Blood Urea Nitrogen 67 mg/dL (8-26) Creatinine 2.9 mg/dL (0.7-1.3) Estimated GFR (Cockcroft-Gault) 21.2 Glucose Level 104 mg/dL (70-99) Calcium Level 8.3 mg/dL (8.5-10.1) Phosphorus Level 4.9 mg/dL (2.6-4.7) Magnesium Level 3.7 mg/dL (1.8-2.4) Micro Micro Microbiology 03/15/21 Blood Culture - Preliminary, Resulted NO GROWTH AFTER 2 DAYS Review of Systems Constitutional: yes: other (UNABLE TO OBTAIN DUE TO CONFUSION) Physical Exam General Appearance: no apparent distress Skin: warm Respiratory: decreased breath sounds Heart: S1S2 Abdomen: soft, bowel sounds present Genitourinary: bladder flat Extremities: pulses present Neurology: confused Musculoskeletal: Weakness Assessment Assessment IMP GLENDA-WORSE HYPERNATREMIA HYPOKALEMIA AG MET ACIDOSIS LACTIC ACIDOSIS DIARRHEA CACHEXIA MALNUTRITION PROB SEPSIS HYPOTENSION IMMUNOCOMPROMISED STAGE 4 MET COLON CANCER PLAN DISCUSSED WITH FAMILY HE IS ACTIVELY DYING NO PLANS FOR AGGRESSIVE MEASURES AGREE WITH FAMILY COMFORT MEASURES ONLY D/W FAMILY WILL SIGN OFF D/W ATTENDING RANDY EVANS MD Mar 18, 2021 11:07
--- NOTE | 2021-03-18 11:46 | NUR ---
SW following. Discussed with RN, pt not doing well today, on O2 with NRB mask. RN contacted SW requesting pt be screened for inpatient hospice per family request. SW sent referral to [facility], they are on their way to evaluate pt. [place] will continue to follow. Addendum: 03/18/21 at 1324 by LILY COLEMAN Pt accepted for inpatient hospice with [facility].
--- NOTE | 2021-03-18 15:33 | PDOC3 ---
Discharge Summary Visit Information Date of Admission: Mar 15, 2021 Date of Discharge: Mar 18, 2021 Admitting Diagnosis: GLENDA, sepsis Final Diagnosis Problems Medical Problems: (1) Acute renal injury due to hypovolemia Status: Acute (2) Cachexia Status: Acute (3) Lactic acidosis Status: Acute Brief Hospital Course Allergies Allergies Coded Allergies Type Severity Reaction Last Updated Verified No Known Drug Allergies 03/15/21 No Vital Signs Vital Signs Date Time Temp Pulse Resp B/P (MAP) Pulse Ox O2 Delivery O2 Flow Rate FiO2 03/18/21 08:48 93 NonRebreather Mask 03/18/21 08:00 2.0 03/18/21 07:00 96.8 103 24 91/50 (64) 96.8 Lab Results Laboratory Tests Test 03/17/21 07:55 03/17/21 09:43 03/17/21 14:20 03/18/21 04:08 Sodium Level 153 mmol/L (136-145) 148 mmol/L (136-145) Potassium Level 2.5 mmol/L (3.5-5.1) 3.2 mmol/L (3.5-5.1) Chloride Level 120 mmol/L (98-107) 115 mmol/L (98-107) Carbon Dioxide Level 15 mmol/L (21-32) 15 mmol/L (21-32) Anion Gap 18 (6-14) 18 (6-14) Blood Urea Nitrogen 59 mg/dL (8-26) 67 mg/dL (8-26) Creatinine 2.3 mg/dL (0.7-1.3) 2.9 mg/dL (0.7-1.3) Estimated GFR (Cockcroft-Gault) 27.7 21.2 Glucose Level 58 mg/dL (70-99) 104 mg/dL (70-99) Calcium Level 7.8 mg/dL (8.5-10.1) 8.3 mg/dL (8.5-10.1) Phosphorus Level 3.4 mg/dL (2.6-4.7) 4.9 mg/dL (2.6-4.7) Magnesium Level 3.4 mg/dL (1.8-2.4) 3.7 mg/dL (1.8-2.4) Lactic Acid Level 4.2 mmol/L (0.4-2.0) 4.3 mmol/L (0.4-2.0) White Blood Count 15.0 x10^3/uL (4.0-11.0) Red Blood Count 4.52 x10^6/uL (4.30-5.70) Hemoglobin 12.3 g/dL (13.0-17.5) Hematocrit 38.5 % (39.0-53.0) Mean Corpuscular Volume 85 fL (79-100) Mean Corpuscular Hemoglobin 27 pg (25-35) Mean Corpuscular Hemoglobin Concent 32 g/dL (31-37) Red Cell Distribution Width 24.8 % (11.5-14.5) Platelet Count 146 x10^3/uL (140-400) Neutrophils (%) (Auto) 87 % (31-73) Lymphocytes (%) (Auto) 11 % (24-48) Monocytes (%) (Auto) 1 % (0-9) Eosinophils (%) (Auto) 0 % (0-3) Basophils (%) (Auto) 0 % (0-3) Neutrophils # (Auto) 13.1 x10^3/uL (1.8-7.7) Lymphocytes # (Auto) 1.6 x10^3/uL (1.0-4.8) Monocytes # (Auto) 0.2 x10^3/uL (0.0-1.1) Eosinophils # (Auto) 0.1 x10^3/uL (0.0-0.7) Basophils # (Auto) 0.0 x10^3/uL (0.0-0.2) Laboratory Tests Test 03/18/21 04:08 White Blood Count 15.0 x10^3/uL (4.0-11.0) Red Blood Count 4.52 x10^6/uL (4.30-5.70) Hemoglobin 12.3 g/dL (13.0-17.5) Hematocrit 38.5 % (39.0-53.0) Mean Corpuscular Volume 85 fL (79-100) Mean Corpuscular Hemoglobin 27 pg (25-35) Mean Corpuscular Hemoglobin Concent 32 g/dL (31-37) Red Cell Distribution Width 24.8 % (11.5-14.5) Platelet Count 146 x10^3/uL (140-400) Neutrophils (%) (Auto) 87 % (31-73) Lymphocytes (%) (Auto) 11 % (24-48) Monocytes (%) (Auto) 1 % (0-9) Eosinophils (%) (Auto) 0 % (0-3) Basophils (%) (Auto) 0 % (0-3) Neutrophils # (Auto) 13.1 x10^3/uL (1.8-7.7) Lymphocytes # (Auto) 1.6 x10^3/uL (1.0-4.8) Monocytes # (Auto) 0.2 x10^3/uL (0.0-1.1) Eosinophils # (Auto) 0.1 x10^3/uL (0.0-0.7) Basophils # (Auto) 0.0 x10^3/uL (0.0-0.2) Sodium Level 148 mmol/L (136-145) Potassium Level 3.2 mmol/L (3.5-5.1) Chloride Level 115 mmol/L (98-107) Carbon Dioxide Level 15 mmol/L (21-32) Anion Gap 18 (6-14) Blood Urea Nitrogen 67 mg/dL (8-26) Creatinine 2.9 mg/dL (0.7-1.3) Estimated GFR (Cockcroft-Gault) 21.2 Glucose Level 104 mg/dL (70-99) Calcium Level 8.3 mg/dL (8.5-10.1) Phosphorus Level 4.9 mg/dL (2.6-4.7) Magnesium Level 3.7 mg/dL (1.8-2.4) Brief Hospital Course Mr Ruiz is a 75-year-old male with a history of metastatic colon cancer, Alzheimer's presented to the emergency department with shortness of breath for the past several days.seen by his oncologist yesterday and was found to have an acute kidney injury, last round of chemotherapy was approximately 10 days ago a nd he has had a total of 3 rounds of chemotherapy. has complained of diarrhea since his chemotherapy. hx compromised due to baseline Alzheimer's dementia hx Stage 4 metastatic colon cancer Left subclavian Port-A-Cath Acute renal injury due to hypovolemia / Cachexia / Severe protein-caloric malnutrition cr 3.7 03/16: K2.9 today. Just feeling tired this is only complaint. Afebrile. Mouth is sore, critically ill. 03/17: K2.5 today, creatinine improved to 2.3. He is vocalizing today, but barely audible. His daughter is bedside. Treat aggressively with IV fluids broad-spectrum antibiotics with micafungin patient failed to improve after 3 days Overnight severe pain well controlled with minimal dose of Dilaudid. This morning had some respiratory distress and had over a liter of greenish-brown fluid suctioned. Family is bedside. Labs were sent again. Long discussion undertaken bedside family understanding is actively dying and of asked to transition to comfort measures and speak with hospice Consults: ID, nephrology, hematology/oncology Problem list: Stage 4 metastatic colon cancer Left subclavian Port-A-Cath Acute renal injury due to vasomotor nephropathy - hypovolemia Cachexia Severe protein-caloric malnutrition SEPSIS Lactic acidosis, likely from dehydration. Hypernatremia, hypokalemia, metabolic acidosis. Diarrhea History of dementia. History of depression. Generalized weakness. Oral sores. Dysphagia Greater than 30 minutes spent on discharge to inpatient hospice care. Discharge Information Condition at Discharge: Comment (Declining) Disposition/Orders: D/C to Another Facility (Hospice inpatient) No Active Prescriptions or Reported Meds Justicifation of Admission Dx: Justifications for Admission: Justification of Admission Dx: Yes ANNE MARIE BAH MD Mar 18, 2021 15:33
== END 2021-03-18 13:24 | disposition hospice, inpatient (51) | DRG 871 ==
LOC: ER 10:22 → ED HOLD 12:45 → 5 NORTH 23:07
PROVIDERS: ADMIT Family Medicine; ATTEND Family Medicine
DX: A41.9 Sepsis, unspecified organism (principal); E43 Unspecified severe protein-calorie malnutrition; N17.0 Acute kidney failure with tubular necrosis; C18.9 Malignant neoplasm of colon, unspecified; C79.9 Secondary malignant neoplasm of unspecified site; D84.9 Immunodeficiency, unspecified; E87.0 Hyperosmolality and hypernatremia; G93.40 Encephalopathy, unspecified; R64 Cachexia; N39.0 Urinary tract infection, site not specified; Z68.1 Body mass index [BMI] 19.9 or less, adult; D63.8 Anemia in other chronic diseases classified elsewhere; E86.0 Dehydration; E86.1 Hypovolemia; E87.6 Hypokalemia; E87.8 Other disorders of electrolyte and fluid balance, not elsewhere classified; F02.80 Dementia in other diseases classified elsewhere, unspecified severity, without behavioral disturbance, psychotic disturbance, mood disturbance, and anxiety; G30.9 Alzheimer's disease, unspecified; I10 Essential (primary) hypertension; K12.31 Oral mucositis (ulcerative) due to antineoplastic therapy; T45.1X5A Adverse effect of antineoplastic and immunosuppressive drugs, initial encounter; Z20.822 Contact with and (suspected) exposure to COVID-19; Z66 Do not resuscitate; Z82.49 Family history of ischemic heart disease and other diseases of the circulatory system; Z85.038 Personal history of other malignant neoplasm of large intestine; F32.9 Major depressive disorder, single episode, unspecified; I95.9 Hypotension, unspecified
CPT/HCPCS: 36415; 71045; 80048; 80076; 83605; 83735; 83880; 84100; 85007; 85025; 85379; 87040; 87426; 87493; 93005; 93970; 94760; 96365; J1170; J2020; J2248; J2543; J3010; J3370; J3480; J3490; J7030; J7050; J7060; U0003; U0005; 99285-25; G0378

== ENCOUNTER 2021-03-18 13:35 | Inpatient (IN) | payer OTHER ==
[~2021-03-18] VITALS: Ht 172.7 cm; Wt 52.6 kg
[2021-03-18] MEDS ORDERED: MORPHINE SULFATE 2 MG/ML INJ. IVP PRN (14:15)
[2021-03-18] MEDS ORDERED: MORPHINE SULFATE 30 ML IV PRN (14:30)
[2021-03-18] MEDS ORDERED: NALOXONE 0.4 MG/ML VIAL. IV PRN (14:30)
[2021-03-18 15:00] VITALS: BP 59/35
[2021-03-18] MEDS ORDERED: SCOPOLAMINE 1.5MG PATCH. TD SCH (15:00)
[2021-03-18] MEDS ORDERED: IV NORMAL SALINE 1000ML BAG 1,000 ML IV SCH (15:00)
--- NOTE | 2021-03-18 16:41 | PDOC1 ---
History and Physical Date of Admission Date of Admission DATE: 03/18/21 TIME: 16:41 Identification/Chief Complaint Chief Complaint Hypoxic respiratory failure, metastatic colon cancer Source Source: Caregiver, Chart review History of Present Illness History of Present Illness Mr Ruiz is a 75-year-old male with a history of metastatic colon cancer, Alzheimer's presented to the emergency department with shortness of breath on 03/15/2021. He was seen by his oncologist yesterday and was found to have an acute kidney injury, last round of chemotherapy was approximately 10 days prior and he has had a total of 3 rounds of chemotherapy. cr 3.7 Noted with severe electrolyte derangements mouth sores difficulty swallowing hypoxia eventually some pulmonary edema requiring significant suctioning. Family noted quick decline in infectious disease as well as hematology oncology nephrology consult and despite aggressive treatment with broad-spectrum antibiotics micafungin and IV fluids he failed to improve after 3 days Overnight severe pain well controlled with minimal dose of Dilaudid. This morning had some respiratory distress and had over a liter of greenish-brown fluid suctioned. Family is bedside. Labs were sent again. Long discussion undertaken bedside family understanding is actively dying and of asked to transition to comfort measures and speak with hospice. Transitioned to inpatient hospice, seen bedside with family members. Patient with increased respirations, air hunger, improved with O2, transitioned to morphine GTT. Past Medical History Cardiovascular: HTN CENTRAL NERVOUS SYSTEM: Dementia Heme/Onc: Cancer, Other Psych: Depression Musculoskeletal: Weakness Family History Family History: Hypertension Social History Smoke: No ALCOHOL: none Drugs: None Current Medications Current Medications Current Medications Lorazepam (Ativan Inj) 1 mg PRN Q1HR PRN IVP ANXIETY / AGITATION; Start 03/18/21 at 14:15 Morphine Sulfate (Morphine Sulfate) 2 mg PRN Q1HR PRN IVP PAIN; Start 03/18/21 at 14:15; Stop 03/18/21 at 14:19; Status DC Scopolamine (Transderm-Scop) 1 patch Q3DAYS TD Last administered on 03/18/21at 16:03; Start 03/18/21 at 15:00 Naloxone HCl (Narcan) 0.4 mg PRN Q2MIN PRN IV SEE INSTRUCTIONS; Start 03/18/21 at 14:30 Sodium Chloride 1,000 ml @ 25 mls/hr Q24H IV ; Start 03/18/21 at 15:00 Morphine Sulfate 30 ml @ 0 mls/hr CONT PRN IV PER PROTOCOL Last administered on 03/18/21at 14:42; Start 03/18/21 at 14:30 Active Scripts Active No Active Prescriptions or Reported Medications Allergies Allergies: Coded Allergies: No Known Drug Allergies (Unverified , 03/15/21) ROS Review of System Unable to obtain, patient non-verbal, obtunded Physical Exam General: Other (Unable to arouse) HEENT: EOMI, Other (Multiple oral ulcers) Lungs: Other (Coarse rhonchi bilaterally) Heart: S1S2, RRR, no thrills, no rubs Abdomen: Other (Diffuse tenderness) Extremities: No tenderness/swelling Neuro: Reflexes 2+ Psych/Mental Status: Other (Obtunded) VTE Prophylaxis Ordered VTE Prophylaxis Devices: Contraindicated VTE Pharmacological Prophylaxi: Contraindicated Assessment/Plan Assessment/Plan A/P: Hypoxic respiratory failure - due to progressive metastatic colon cancer - maintain O2 for comfort Stage 4 metastatic colon cancer Left subclavian Port-A-Cath accessed for IV morphine GTT Acute renal injury due to vasomotor nephropathy - hypovolemia Cachexia Severe protein-caloric malnutrition SEPSIS Lactic acidosis, likely from dehydration. Hypernatremia, hypokalemia, metabolic acidosis. Diarrhea History of dementia. History of depression. Generalized weakness. Oral sores. Dysphagia FEN - NPO, could give comfort foods PPX - rotate q2hrs CODE - DNR/DNI Dispo - inpatient hospice, he is critically ill near demise. Discussed with family bedside. All questions answered. Justifications for Admission Other Justification ANNE MARIE BAH MD Mar 18, 2021 16:41
[2021-03-18 19:50] VITALS: BP 43/15
--- NOTE | 2021-03-18 21:30 | NUR ---
"Napoleon" passed @ 2124 w/ several family members @ BS. This was verified w/ 2 nurses. Nursing pricing supervisor, [facility], Dr. Gill, [facility] and home all notified. R-arm IV d/c'd, L-chest portacath de-accessed, rectal tube removed and post-mortem care performed. Family took all pt. belongings and there will be no valuables left w/ the body that will go to the home.
--- NOTE | 2021-03-19 09:25 | PDOC3 ---
Discharge Summary Visit Information Date of Admission: Mar 18, 2021 Date of Discharge: Mar 18, 2021 Admitting Diagnosis: GLENDA, FATIGUE, WEIGHT LOSS Final Diagnosis Sepsis Brief Hospital Course Allergies Allergies Coded Allergies Type Severity Reaction Last Updated Verified No Known Drug Allergies 03/15/21 No Vital Signs Vital Signs Date Time Temp Pulse Resp B/P (MAP) Pulse Ox O2 Delivery O2 Flow Rate FiO2 03/18/21 20:06 92 Nasal Cannula 6.0 03/18/21 19:50 98.6 75 16 43/15 (24) 98.6 Brief Hospital Course Mr Ruiz is a 75-year-old male with a history of metastatic colon cancer, Alzheimer's presented to the emergency department with shortness of breath on 03/15/2021. He was seen by his oncologist yesterday and was found to have an acute kidney injury, last round of chemotherapy was approximately 10 days prior and he has had a total of 3 rounds of chemotherapy. cr 3.7 Noted with severe electrolyte derangements mouth sores difficulty swallowing hypoxia eventually some pulmonary edema requiring significant suctioning. Family noted quick decline in infectious disease as well as hematology oncology nephrology consult and despite aggressive treatment with broad-spectrum antibiotics micafungin and IV fluids he failed to improve after 3 days Overnight severe pain well controlled with minimal dose of Dilaudid. This morning had some respiratory distress and had over a liter of greenish-brown fluid suctioned. Family is bedside. Labs were sent again. Long discussion undertaken bedside family understanding is actively dying and of asked to transition to comfort measures and speak with hospice. Transitioned to inpatient hospice, seen bedside with family members. Patient with increased respirations, air hunger, improved with O2, transitioned to morphine GTT. He continues to decline throughout the day and was found with no cardiac respiratory activity 2124 Time of 2124 Prob list: Hypoxic respiratory failure - due to progressive metastatic colon cancer Stage 4 metastatic colon cancer Acute renal injury due to vasomotor nephropathy Cachexia Severe protein-caloric malnutrition SEPSIS Lactic acidosis, likely from dehydration. Hypernatremia, hypokalemia, metabolic acidosis. Diarrhea History of dementia. History of depression. Generalized weakness. Oral sores. Dysphagia Greater than 30 minutes spent on care day of admit and d/c Discharge Information Condition at Discharge: / Disposition/Orders: No Active Prescriptions or Reported Meds Justicifation of Admission Dx: Justifications for Admission: Justification of Admission Dx: Yes ANNE MARIE BAH MD Mar 19, 2021 09:25
== END 2021-03-18 21:25 | DRG 871 ==
LOC: 5 NORTH 13:35
PROVIDERS: ADMIT Internal Medicine; ATTEND Internal Medicine
DX: A41.9 Sepsis, unspecified organism (principal); E43 Unspecified severe protein-calorie malnutrition; N17.0 Acute kidney failure with tubular necrosis; J96.91 Respiratory failure, unspecified with hypoxia; C18.9 Malignant neoplasm of colon, unspecified; C79.9 Secondary malignant neoplasm of unspecified site; E87.0 Hyperosmolality and hypernatremia; Z68.1 Body mass index [BMI] 19.9 or less, adult; E86.0 Dehydration; E86.1 Hypovolemia; E87.6 Hypokalemia; F02.80 Dementia in other diseases classified elsewhere, unspecified severity, without behavioral disturbance, psychotic disturbance, mood disturbance, and anxiety; G30.9 Alzheimer's disease, unspecified; I10 Essential (primary) hypertension; Z51.5 Encounter for palliative care; Z66 Do not resuscitate; Z82.49 Family history of ischemic heart disease and other diseases of the circulatory system; F32.9 Major depressive disorder, single episode, unspecified
CPT/HCPCS: J2270; J7030; G0378